=== PATIENT | male | born 1950 | race Caucasian/White ===

== ENCOUNTER 2018-02-22 15:35 | Outpatient (CLI) | payer BC ==
--- NOTE | 2018-02-22 17:51 | MRI ---
MRI CERVICAL SPINE NONCONTRAST: 02/22/18 HISTORY: Neck pain with bilateral arm radiculopathy. FINDINGS: Mild chronic wedging of several cervical vertebrae is noted without acute compression evident. There is desiccation of all of the intervertebral discs and prominent end plate changes within the bone mar row. Edema within the left posterior elements at the C7 and T1 level is favored to be related to dege nerative changes. There is reversal of the normal lordotic curvature. C2-3: Moderate stenosis left neural foramen. C3-4: Minimal degenerative spondylolisthesis. Posterior osteophyte/disc complex and circumferential d egenerative changes result in moderate stenosis of the central canal and severe stenosis of each neur al foramen. No abnormal signal within the spinal cord. C4-5: Disc space narrowing. Posterior osteophyte/disc complex and circumferential degenerative change s with moderate stenosis of the central canal and severe stenosis of each neural foramen. No abnormal signal within the spinal cord. C5-6: Disc space narrowing. Posterior osteophyte/disc complex and circumferential degenerative change s with severe stenosis of the central canal and compression of the spinal cord, greater on the right side. No abnormal signal within the spinal cord. There is severe stenosis of each neural foramen. C6-7: Disc space narrowing. Posterior osteophyte/disc complex and circumferential degenerative change s with moderate stenosis of the central canal and right neural foramen. Severe left foraminal stenosi s. C7-T1: Disc space narrowing. Central canal and neural foramina are patent. IMPRESSION: Severe multilevel degenerative changes throughout the cervical spine as detailed above, with central canal and foraminal stenoses, greatest at the C5-6 level. No evidence of myelomalacia. POS: [facility]
== END 2018-02-22 15:36 | disposition home or self-care (01) ==
LOC: SCSMRI 15:35
PROVIDERS: ATTEND Neurological Surgery
DX: M47.22 Other spondylosis with radiculopathy, cervical region (principal); M48.02 Spinal stenosis, cervical region; M99.81 Other biomechanical lesions of cervical region
CPT/HCPCS: 72141

== ENCOUNTER 2018-04-01 10:42 | Outpatient (CLI) | payer BC ==
[2018-04-01 11:07] LABS: Hemoglobin 16.6 g/dL (14.0-18.0); Mean Corpuscular HGB CONC 31.9 g/dL (32.0-36.0); Mean Corpuscular Hemoglobin 31.5 pg (27.0-31.0); Mean Corpuscular Volume 98.6 fl (80.0-94.0); Mean Platelet Volume 8.2 fL (7.4-10.4); Platelet Count 237 thou/uL (130-400); RBC Distribution Width 12.5 % (11.5-14.5); Red Blood Cell (RBC) Count 5.27 mill/uL (4.70-6.10); White Blood Cell (WBC) Count 12.6 thou/uL (4.8-10.8)
[2018-04-01 11:11] LABS: INR-International Normal Ratio 1.2; PTT 31.4 SEC (22.9-36.1); Prothrombin Time 15.7 SEC (12.0-14.7)
[2018-04-01 11:31] LABS: ALT (SGPT) 21 U/L (8-55); AST (SGOT) 20 U/L (5-34); Albumin 4.2 g/dL (3.4-4.8); Alkaline Phosphatase 81 U/L (40-150); Anion Gap 10 mmol/L (10-20); BUN (Urea Nitrogen) 14 mg/dL (8.4-25.7); Bilirubin, Total 0.6 mg/dL (0.2-1.2); Calc. Creatinine Clearance 0 mL/min (70-130); Calcium 9.3 mg/dL (7.8-10.44); Carbon Dioxide 25 mmol/L (23-31); Chloride 109 mmol/L (98-107); Estimated GFR-MDRD 64; Globulin 2.5 g/dL (2.4-3.5); Glucose 98 mg/dL (80-115); Potassium 4.4 mmol/L (3.5-5.1); Protein, Total 6.7 g/dL (5.8-8.1); Sodium 140 mmol/L (136-145)
--- NOTE | 2018-04-03 20:12 | EKG ---
Test Reason : Blood Pressure : / mmHG Vent. Rate : 085 BPM Atrial Rate : 085 BPM P-R Int : 186 ms QRS Dur : 156 ms QT Int : 408 ms P-R-T Axes : 060 -72 031 degrees QTc Int : 485 ms Normal sinus rhythm Right bundle branch block Left anterior fascicular block Bifascicular block Cannot rule out Inferior infarct (cited on or before 29-NOV-2013) Anterolateral infarct (cited on or before 24-JAN-2014) Abnormal ECG When compared with ECG of 26-JAN-2014 07:34, Questionable change in initial forces of Septal leads Nonspecific T wave abnormality has replaced inverted T waves in Inferior leads T wave inversion less evident in Anterolateral leads Confirmed by CHRISTIAN GALVEZ (2) on 04/03/2018 8:12:37 PM Referred By: COOKIE Confirmed By:CHRISTIAN GALVEZ
== END 2018-04-01 10:43 | disposition home or self-care (01) ==
LOC: LABBT 10:42
PROVIDERS: ATTEND Internal Medicine Cardiovascular Disease
DX: Z01.818 Encounter for other preprocedural examination (principal); R93.1 Abnormal findings on diagnostic imaging of heart and coronary circulation
CPT/HCPCS: 80053; 85027; 85610; 85730; 93005; 93010

== ENCOUNTER → 2018-04-02 | Day surgery (SDC) | payer BC ==
[2018-04-01 14:44] VITALS: BMI 37.2
[~2018-04-02] MED LIST: Diazepam 5 MG TAB ONE; Fentanyl 100 MCG/2 ML VIAL ONE; Heparin 10,000 UNITS/1 ML VIAL ONE; Lidocaine 1% (PF) 30 ML VIAL ONE; Midazolam HCl 2 mg/2 ml Vial ONE; Nitroglycerin 100MG/250ML BOT 250 ML ONE; Verapamil 5 MG/2 ML VIAL ONE
--- NOTE | 2018-04-02 12:12 | RAD ---
PORTABLE CHEST 1 VIEW: Date: 04/02/18 Time: 1122 hours HISTORY: Preoperative evaluation. FINDINGS: Comparison made with exam of 01/24/14. The heart size is normal. No focal areas of consolidation, pneumothorax, or pleural effusions are see n. IMPRESSION: No radiographic evidence of acute cardiopulmonary process. POS: [facility]
--- NOTE | 2018-04-02 13:01 | CON ---
DATE OF CONSULTATION: 04/02/2018 REASON FOR CONSULTATION: Evaluate the patient for coronary artery bypass grafting. HISTORY OF PRESENT ILLNESS: Mr. Ott is a very pleasant 67-year-old gentleman who is undergoin g preoperative evaluation for a cervical neck surgery by Dr. Taveras. Stress test in Dr. Elizondo's office was positive. He has a history of coronary artery disease, status post stenting of his LAD w ith acute restenosis followed by restenting with a drug-eluting stent in his LAD. Due to his coronar y history and positive stress test, he was brought back today for cardiac catheterization. This has revealed a stenosis in his LAD proximal to the stent. This involves the diagonal branch. He has als o a second diagonal branch which has some stenosis which is a small artery. Ejection fraction is 50- 55% on echocardiogram. I have been asked to see him to discuss coronary bypass grafting. PAST MEDICAL HISTORY: 1. Coronary artery disease, status post left anterior descending stenting. 2. Hypercholesterolemia. 3. Non-Hodgkin's lymphoma. 4. Venous reflux on the left status post laser ablation of his left greater saphenous vein. PAST SURGICAL HISTORY: As above. CURRENT MEDICATIONS: 1. Saw [place] 160 mg b.i.d. 2. Aspirin 325 mg every day. 3. [place] Thyroid 60 mg daily. 4. Vitamin B12 every day. 5. Metformin 1000 mg every day. 6. Testosterone gel every day. 7. Levothyroxine 25 mcg daily. 8. Trulicity. 9. Flomax 0.4 mg every day. 10. Crestor 20 mg at bedtime. ALLERGIES: None. SOCIAL HISTORY: He quit smoking a number of years ago. He is and works in the construction industry. PHYSICAL EXAMINATION: GENERAL: This is an obese gentleman resting comfortably after his cath. VITAL SIGNS: Height 6 foot 2 inches, weight 290 pounds, BSA is 2.62, heart rate is 70 and regular, b lood pressure is 130/72. HEENT: Sclerae nonicteric. Pupils are equal and round bilaterally. NECK: Supple, without carotid bruit. CHEST: Clear bilaterally. HEART: Rhythm is regular. ABDOMEN: Obese, soft and nontender. EXTREMITIES: No edema. VASCULAR: He has palpable carotid, radial, and femoral pulses bilaterally. VENOUS: There are no venous varicosities or venous stasis changes. ASSESSMENT AND PLAN: This is a pleasant 67-year-old gentleman with severe left anterior descending s tenosis proximal to his stent involving a large diagonal branch. These 2 arteries need bypass. Ther e is a second diagonal branch which may be bypassable. I have discussed bypass surgery with him and his in detail. Risks, benefits, and options have been outlined and they are agreeable to kenn hazel. He is administering a test on 04/15/2018 and would like to come in on 04/16/2018 for surgery. We will have him admitted as an outpatient.
== END ==
LOC: CCL 05:57
PROVIDERS: ATTEND Internal Medicine Cardiovascular Disease
DX: I25.118 Atherosclerotic heart disease of native coronary artery with other forms of angina pectoris (principal); E78.00 Pure hypercholesterolemia, unspecified; I25.2 Old myocardial infarction; E66.9 Obesity, unspecified; Z87.891 Personal history of nicotine dependence; Z95.5 Presence of coronary angioplasty implant and graft; Z79.84 Long term (current) use of oral hypoglycemic drugs; Z79.82 Long term (current) use of aspirin; Z79.899 Other long term (current) drug therapy; Z68.37 Body mass index [BMI] 37.0-37.9, adult
CPT/HCPCS: 71045; 93454; C1769; J1644; J2001; J2250; J3010

== ENCOUNTER 2018-04-16 05:41 | Inpatient (IN) | payer BC, MEDICARE ==
[2018-04-12 08:27] VITALS: BMI 36.6
[2018-04-16] MEDS ORDERED: CEFAZOLIN/Water 2 GM/20 ML SYRINGE ONE (06:15)
[2018-04-16] MEDS ORDERED: Albumin 5% 500 ML ONE (06:34)
[2018-04-16] MEDS ORDERED: Vecuronium 10 MG VIAL ONE ×2 (06:35→13:49)
[2018-04-16] MEDS ORDERED: Fentanyl 100 MCG/2 ML VIAL ONE (06:35)
[2018-04-16] MEDS ORDERED: Midazolam HCl 5 mg/5 ml Vial ONE (06:35)
[2018-04-16] MEDS ORDERED: Dexmedetomidine 200 MCG/2 ML VIAL ONE (06:35)
[2018-04-16] MEDS ORDERED: Heparin 10,000 UNITS/1 ML VIAL 30,000 UNITS, Admixture Fee 1 EACH in Sodium Chloride 0.... IVPB SCH (06:45)
[2018-04-16] MEDS ORDERED: Bivalirudin 250 MG VIAL ONE (08:58)
[2018-04-16] MEDS ORDERED: Insulin Regular 300 UNITS/3 ML VIAL ONE (09:50)
[2018-04-16] MEDS ORDERED: Dextrose 50% Abboject 50 ML SYRINGE ONE (09:50)
[2018-04-16] MEDS ORDERED: Protamine Sulfate 250 MG/25 ML VIAL ONE ×2 (10:00→13:49)
[2018-04-16] MEDS ORDERED: Bisacodyl 5 MG TAB PO PRN (11:04)
[2018-04-16] MEDS ORDERED: DOPamine 400 MG/D5W 250 ML 250 ML IVPB PRN (11:04)
[2018-04-16] MEDS ORDERED: Morphine 4 MG/ML VIAL SLOW IVP PRN (11:04)
[2018-04-16] MEDS ORDERED: HYDROcodone/Acetaminophen 5/325 mg Tablet PO PRN (11:04)
[2018-04-16] MEDS ORDERED: Promethazine HCl 25 MG/ML VIAL IM PRN (11:04)
[2018-04-16] MEDS ORDERED: Guaifenesin DM 100-10/5 ML UDCUP PO PRN (11:04)
[2018-04-16] MEDS ORDERED: hydrALAZINE 20 MG/ML VIAL SLOW IVP PRN (11:04)
[2018-04-16] MEDS ORDERED: Potassium Chloride 20 MEQ/100 ML PREMIX BAG IVPB PRN (11:04)
[2018-04-16] MEDS ORDERED: Mag-Al 1200 mg/1200 mg/30 ML UDCUP PO PRN (11:04)
[2018-04-16] MEDS ORDERED: Norepinephrine 8 MG/0.9% NS 250 ML IVPB PRN (11:04)
[2018-04-16] MEDS ORDERED: Ondansetron PF 4 MG/2 ML Vial IVP PRN (11:04)
[2018-04-16] MEDS ORDERED: Fentanyl 100 MCG/2 ML VIAL SLOW IVP PRN (11:04)
[2018-04-16] MEDS ORDERED: Nitroglycerin 50 MG/250 ML BOT 250 ML IVPB PRN (11:04)
[2018-04-16] MEDS ORDERED: Bisacodyl 10 MG SUPP PR PRN (11:04)
[2018-04-16] MEDS ORDERED: Hetastarch 6% 500 ML 500 ML IVPB PRN (11:04)
[2018-04-16] MEDS ORDERED: Post-Op Insulin Drip Protocol IVPB ONE (11:04)
[2018-04-16] MEDS ORDERED: D5 1/2 NS w/20 mEq KCL 1,000 ML IV SCH (11:04)
[2018-04-16] MEDS ORDERED: Magnesium 2 GM/NS 0.9% 100 ML 2 GM in Premix Bag 1 BAG IVPB SCH (11:15)
[2018-04-16] MEDS ORDERED: Dextrose 5% in Water 1,000 ML IV PRN (11:17)
[2018-04-16] MEDS ORDERED: Dextrose 50% Abboject 50 ML SYRINGE SLOW IVP PRN (11:17)
[2018-04-16] MEDS ORDERED: Insulin Regular 300 UNITS/3 ML VIAL SC PRN (11:17)
--- NOTE | 2018-04-16 11:35 | OP ---
DATE OF PROCEDURE: 04/16/2018 PREOPERATIVE DIAGNOSES: Coronary artery disease/hypertension/hyperlipidemia/obesity. POSTOPERATIVE DIAGNOSES: Coronary artery disease/hypertension/ hyperlipidemia/obesity. PROCEDURE: Coronary artery bypass grafting x3: 1. Left internal mammary artery 2.5 mm LAD - good conduit target. 2. Reverse saphenous vein to 2.0 mm D1 - good conduit and target. 3. Reverse saphenous vein to 2.0 mm D2, good conduit and target. SURGEON: Dr. Ramana Michel and Dr. Yovany Lowery ANESTHESIA: General endotracheal, Dr. Red Best. PUMP TIME: 67 minutes. CROSS-CLAMP TIME: 33 minutes. LOW CORE TEMP: 32-degree Celsius. ENVIRONMENTAL LABORATORY TECHNICIAN: Nelly Yepez. DRAINS: 24-Tajik chest tubes x2. DRIPS: Dopamine at 5 mcg per kilo per minute. TRANSFUSIONS: None. PROCEDURE IN DETAIL: After operative consent was obtained, the patient was brought to the operating room and placed in the supine position on operating table. Appropriate anesthetic monitor was placed and general endotracheal anesthesia induced. Chest, arms and legs were prepped and draped in usual sterile fashion. Greater saphenous vein was harvested from the right thigh utilizing endoscopic tech nique. Wounds were closed in layers. Median sternotomy was performed. The left internal mammary ar nikole was harvested as a pedicle graft. The patient was systemically heparinized. Distal pedicle was divided and infused with papaverine. Thymic fat pericardial divided with electrocautery. Pericardi al stay sutures were placed. Aortic and atrial cannulation was performed. After adequate hepariniza tion, retrograde prime was performed. The patient was then placed on cardiopulmonary bypass. Distal targets were marked. Aortic cross-clamp was applied and antegrade sanguinous cardioplegic arrest ob tained. One liter of antegrade cold cardioplegia was given. Topical cold solution was used. Revers e saphenous vein was anastomosed to the D1 end to side fashion with a 7-0 Prolene suture. Anastomosi s tested and was hemostatic. Reverse saphenous vein was anastomosed to D2 in end to side fashion wit h a 7-0 Prolene suture. Anastomosis was tested and was hemostatic. Mammary artery was brought throu gh a window in the pericardium and anastomosed the LAD in end-to-side fashion with running 7-0 Prolen e suture. On release of mammary clamp, there was good hooding anastomosis and good distal flow. Ped icle screw with interrupted 6-0 Prolene suture. Cross-clamp was removed and partial occluding clamp placed. Saphenous veins were anastomosed individual punch sites with running 6-0 Prolene suture. Pa rtial occluding clamp was removed and grafts deaired. Anastomoses were inspected for hemostasis, whi ch was good. The patient was warmed and weaned from cardiopulmonary bypass. After resumption of sin us rhythm, good hemodynamics, and temperature greater than 36.5, bypass was discontinued. Transfusio ns were given. Protamine was administered. Decannulation was performed and pursestring sutures secu red. Hemostasis was ensured in the mediastinum. A 24-Tajik chest tube x2 were placed. Again, hemo stasis was ensured. Sternum was treated with vancomycin paste. Sternum was closed with #7 wire. St ernum was treated with platelet-rich plasma and wires twisted. Wounds were irrigated and treated wit h platelet-poor plasma, and closed in multiple layers. Needle, sponge and instrument counts were all reported as correct at the end of the procedure.
[2018-04-16] MEDS: Fentanyl 100 MCG/2 ML VIAL SLOW IVP PRN ×2 (11:42→14:04)
[2018-04-16] MEDS: Ketorolac Tromethamine 30 MG/ML VIAL IVP SCH ×3 (11:42→23:05)
[2018-04-16 12:02] LABS: INR-International Normal Ratio 1.3; PTT 32.6 SEC (22.9-36.1); Prothrombin Time 16.2 SEC (12.0-14.7)
[2018-04-16 12:04] LABS: Anion Gap 9 mmol/L (10-20); BUN (Urea Nitrogen) 16 mg/dL (8.4-25.7); Calc. Creatinine Clearance 125 mL/min (70-130); Calcium 8.2 mg/dL (7.8-10.44); Carbon Dioxide 21 mmol/L (23-31); Chloride 111 mmol/L (98-107); Estimated GFR-MDRD 70; Glucose 167 mg/dL (80-115); Potassium 4.4 mmol/L (3.5-5.1); Sodium 137 mmol/L (136-145)
[2018-04-16 12:09] LABS: Hemoglobin 15.7 g/dL (14.0-18.0); Mean Corpuscular HGB CONC 31.3 g/dL (32.0-36.0); Mean Platelet Volume 8.2 fL (7.4-10.4); Platelet Count 122 thou/uL (130-400); RBC Distribution Width 12.3 % (11.5-14.5); Red Blood Cell (RBC) Count 5.07 mill/uL (4.70-6.10); White Blood Cell (WBC) Count 31.3 thou/uL (4.8-10.8)
[2018-04-16 12:23] LABS: Actual Bicarbonate (HCO3a) 22.9 mEq/L (22-26); Base Excess (BEa) -4.2 mEq/L (0 (+/-) 2.5); CO2 Tension 49.3 mmHg (35.0-45.0); O2 Tension (PaO2) 71.5 mmHg (80.0-100.0); pH, Arterial 7.29 (7.35-7.45)
[2018-04-16 12:24] LABS: ALV-art Gradient 223.375 (0-20); Calcium, Ionized 1.2 mmol/L (1.12-1.30); Carboxyhemoglobin (COHb) 1.6 gm% (0.0-3.0); Hematocrit-ABG 47.7 % (42.0-52.0); Hemoglobin (Hb) 15.8 g/dL (14.0-18.0); Puncture Site ALINE
[2018-04-16 12:27] LABS: Band 19 % (5-11); Eosinophils 1 % (0-10); Lymphocytes 8 % (21-51); MDiff Complete? YES; Monocytes 8 % (0-10); Neutrophil 60 % (42-75); RBC Morphology Normal; Reactive Lymphocytes 4 % (0-10)
[2018-04-16] MEDS ORDERED: Prevnar 13-Val Conj/PF 0.5 ML SYRINGE IM ONE (13:00)
[2018-04-16] MEDS: CEFAZOLIN/Water 2 GM/20 ML SYRINGE SLOW IVP SCH ×2 (13:27→20:17)
--- NOTE | 2018-04-16 13:36 | RAD ---
FRONTAL VIEW CHEST: Date: 04/16/18 COMPARISON: 04/02/18. INDICATION: Status post open heart surgery. FINDINGS: There is an endotracheal tube with tip at the level of the thoracic inlet. Right subclavian venous ca theter is present with tip overlying cavoatrial junction. There is evidence of sternotomy. Catheter t ubing is seen overlying the lower aspect of the mediastinum. There is an enteric catheter traversing the left mediastinal region, difficult to delineate at its distal aspect. If there is need to discern the distal portion, consider abdominal radiographic for more optimal visualization. There is patchy left basilar density, which obscures the left hemidiaphragm. The cardiac silhouette is enlarged and t here is prominence of the pulmonary vasculature. IMPRESSION: Patchy left basilar density which may be related to pleural fluid with adjacent atelectasis. Additional details are described above. POS: [facility]
[2018-04-16] MEDS ORDERED: Lidocaine 1% PF 5 ML VIAL ONE ×2 (13:49)
[2018-04-16] MEDS ORDERED: Heparin 30,000 units/30 ml VIAL ONE (13:49)
[2018-04-16] MEDS ORDERED: Lidocaine 2% PF 100 mg/5 ml Syringe ONE (13:49)
[2018-04-16] MEDS ORDERED: Papaverine 60 MG/2 ML VIAL ONE (13:49)
[2018-04-16] MEDS ORDERED: PHENYLEPHRINE-NS 100 MCG/ML 10 ML SYRINGE ONE (13:49)
[2018-04-16] MEDS ORDERED: ePHEDrine/0.9% NaCl/PF SYRINGE 50 mg/10 ml ONE (13:49)
[2018-04-16] MEDS ORDERED: Nitroglycerin 50 MG/250 ML BOT ONE (13:49)
[2018-04-16] MEDS ORDERED: Tranexamic Acid 1,000 MG/10 ML VIAL ONE (13:49)
[2018-04-16] MEDS ORDERED: Sodium Bicarb 50 MEQ/50 ML Abboject 8.4% SYRINGE ONE (13:49)
[2018-04-16] MEDS ORDERED: Calcium Chloride 1 GM/10 ML Abboject SYRINGE ONE (13:49)
[2018-04-16] MEDS ORDERED: Glycopyrrolate 0.2 MG/ML 5 ML SYRINGE ONE (13:49)
[2018-04-16] MEDS ORDERED: Cardioplegic Soln 1,000 ML BAG ONE (13:49)
[2018-04-16] MEDS ORDERED: Heparin 5,000 UNITS/ML VIAL ONE (13:49)
[2018-04-16] MEDS ORDERED: Thrombin 5000 UNITS/5 ML VIAL ONE (13:49)
[2018-04-16] MEDS: Meperidine HCl/PF 25 MG/ML VIAL SLOW IVP PRN ×4 (14:27→23:06)
[2018-04-16 17:22] LABS: Hemoglobin 15.5 g/dL (14.0-18.0)
[2018-04-16] MEDS: Acetaminophen 325 MG TAB PO PRN (20:05)
[2018-04-16] MEDS: Famotidine/PF 20 mg/2ml Vial SLOW IVP SCH (20:37)
--- NOTE | 2018-04-16 23:54 | EKG ---
Test Reason : POST CABG Blood Pressure : / mmHG Vent. Rate : 112 BPM Atrial Rate : 112 BPM P-R Int : 146 ms QRS Dur : 150 ms QT Int : 368 ms P-R-T Axes : 046 -77 047 degrees QTc Int : 502 ms Sinus tachycardia Left axis deviation Right bundle branch block Inferior infarct (cited on or before 29-NOV-2013) Anteroseptal infarct (cited on or before 24-JAN-2014) Abnormal ECG When compared with ECG of 01-APR-2018 10:52, Left anterior fascicular block is no longer Present Questionable change in initial forces of Septal leads Confirmed by Morenita LOVETT ([id number]) on 04/16/2018 11:54:08 PM Referred By: Enoch DEGROOT Confirmed By:Morenita LOVETT
[2018-04-17] MEDS: Acetaminophen 325 MG TAB PO PRN (02:05)
[2018-04-17] MEDS: Meperidine HCl/PF 25 MG/ML VIAL SLOW IVP PRN ×7 (03:31→21:36)
[2018-04-17 04:41] LABS: #Lymphocytes 1.9 thou/uL (1.20-3.40); %Basophils 0.3 % (0.0-1.0); %Eosinophils 0.2 % (0.0-10.0); %Lymphocytes 13.5 % (21.0-51.0); %Monocytes 14.3 % (0.0-10.0); %Neutrophils 71.8 % (42.0-75.0); Hemoglobin 13.6 g/dL (14.0-18.0); Mean Corpuscular HGB CONC 32.8 g/dL (32.0-36.0); Mean Corpuscular Hemoglobin 32.3 pg (27.0-31.0); Mean Corpuscular Volume 98.3 fl (80.0-94.0); Mean Platelet Volume 8.1 fL (7.4-10.4); Platelet Count 108 thou/uL (130-400); RBC Distribution Width 12.3 % (11.5-14.5)
[2018-04-17 04:45] LABS: Anion Gap 12 mmol/L (10-20); BUN (Urea Nitrogen) 22 mg/dL (8.4-25.7); Calc. Creatinine Clearance 108 mL/min (70-130); Calcium 7.9 mg/dL (7.8-10.44); Carbon Dioxide 22 mmol/L (23-31); Chloride 108 mmol/L (98-107); Estimated GFR-MDRD 59; Glucose 139 mg/dL (80-115); Potassium 4.5 mmol/L (3.5-5.1); Sodium 137 mmol/L (136-145)
[2018-04-17] MEDS: Ketorolac Tromethamine 30 MG/ML VIAL IVP SCH ×4 (05:26→23:46)
[2018-04-17] MEDS: CEFAZOLIN/Water 2 GM/20 ML SYRINGE SLOW IVP SCH (05:28)
[2018-04-17] MEDS: Magnesium 2 GM/NS 0.9% 100 ML 2 GM in Premix Bag 1 BAG IVPB SCH (08:25)
[2018-04-17] MEDS: Famotidine/PF 20 mg/2ml Vial SLOW IVP SCH ×2 (08:25→21:00)
[2018-04-17] MEDS: Aspirin 325 MG TAB PO SCH (08:25)
[2018-04-17] MEDS: Rosuvastatin 20 MG TAB PO SCH (08:25)
[2018-04-17 09:18] LABS: Actual Bicarbonate (HCO3a) 24.7 mEq/L (22-26); CO2 Tension 49.2 mmHg (35.0-45.0); O2 Tension (PaO2) 311.6 mmHg (80.0-100.0); pH, Arterial 7.32 (7.35-7.45)
[2018-04-17 09:19] LABS: Actual Bicarbonate (HCO3a) 23.4 mEq/L (22-26); Base Excess (BEa) -2.8 mEq/L (0 (+/-) 2.5); CO2 Tension 45.4 mmHg (35.0-45.0); O2 Tension (PaO2) 145.8 mmHg (80.0-100.0); pH, Arterial 7.33 (7.35-7.45)
[2018-04-17 09:19] LABS: Analyzer IN Cardio OR; Calcium, Ionized 1.2 mmol/L (1.12-1.30); Carboxyhemoglobin (COHb) 1.6 gm% (0.0-3.0); Hematocrit-ABG 49.3 % (42.0-52.0); Potassium - ABG Lab 4.6 mmol/L (3.70-5.30); Puncture Site ALINE
[2018-04-17 09:20] LABS: Actual Bicarbonate (HCO3a) 23.4 mEq/L (22-26); Base Excess (BEa) -2.5 mEq/L (0 (+/-) 2.5); CO2 Tension 44.3 mmHg (35.0-45.0); O2 Tension (PaO2) 348.3 mmHg (80.0-100.0); pH, Arterial 7.34 (7.35-7.45)
[2018-04-17 09:20] LABS: Analyzer IN Cardio OR; Calcium, Ionized 1.1 mmol/L (1.12-1.30); Carboxyhemoglobin (COHb) 1.5 gm% (0.0-3.0); Hemoglobin (Hb) 15.2 g/dL (14.0-18.0); Potassium - ABG Lab 5.3 mmol/L (3.70-5.30); Puncture Site ALINE
[2018-04-17 09:21] LABS: Analyzer IN Cardio OR; Calcium, Ionized 1.1 mmol/L (1.12-1.30); Carboxyhemoglobin (COHb) 1.4 gm% (0.0-3.0); Hematocrit-ABG 38.7 % (42.0-52.0); Hemoglobin (Hb) 13.3 g/dL (14.0-18.0); Potassium - ABG Lab 6.8 mmol/L (3.70-5.30); Puncture Site ALINE
[2018-04-17 09:21] LABS: Actual Bicarbonate (HCO3v) 25 mEq/L (22-26); Analyzer IN Cardio OR; Base Excess -1.7 mEq/L (0 (+/- 2.5)); pH (venous) 7.31 (7.35-7.45)
[2018-04-17 09:22] LABS: Calcium, Ionized 1.05 mmol/L (1.16-1.32); Chloride (ABG LAB) 101 mmol/L (98-106); Hematocrit-VBG 39.3 % (37-51); Hemoglobin (Hb) 13.2 g/dL (12.6-17.4); Potassium - ABG Lab 6.8 mmol/L (3.70-5.30); Sodium 135.8 mmol/L (133-146)
[2018-04-17 09:22] LABS: Base Excess (BEa) -2.6 mEq/L (0 (+/-) 2.5); Carboxyhemoglobin (COHb) 1.5 gm% (0.0-3.0); Hematocrit-ABG 41.1 % (42.0-52.0); Hemoglobin (Hb) 13.6 g/dL (14.0-18.0); O2 Tension (PaO2) 352.8 mmHg (80.0-100.0); pH, Arterial 7.35 (7.35-7.45)
[2018-04-17 09:23] LABS: Actual Bicarbonate (HCO3a) 23.5 mEq/L (22-26); Base Excess (BEa) -1.8 mEq/L (0 (+/-) 2.5); CO2 Tension 42.1 mmHg (35.0-45.0); Hematocrit-ABG 40.7 % (42.0-52.0); Hemoglobin (Hb) 13.6 g/dL (14.0-18.0); O2 Tension (PaO2) 339.2 mmHg (80.0-100.0); pH, Arterial 7.37 (7.35-7.45)
[2018-04-17 09:23] LABS: Analyzer IN Cardio OR; Calcium, Ionized 1.1 mmol/L (1.12-1.30); Potassium - ABG Lab 7.1 mmol/L (3.70-5.30); Puncture Site ALINE
[2018-04-17 09:24] LABS: Actual Bicarbonate (HCO3a) 23.1 mEq/L (22-26); Base Excess (BEa) -2.7 mEq/L (0 (+/-) 2.5); CO2 Tension 43.4 mmHg (35.0-45.0); Carboxyhemoglobin (COHb) 1.6 gm% (0.0-3.0); Hematocrit-ABG 40.6 % (42.0-52.0); Hemoglobin (Hb) 13.7 g/dL (14.0-18.0); O2 Tension (PaO2) 85.9 mmHg (80.0-100.0); pH, Arterial 7.34 (7.35-7.45)
[2018-04-17 09:24] LABS: Analyzer IN Cardio OR; Calcium, Ionized 1.5 mmol/L (1.12-1.30); Carboxyhemoglobin (COHb) 1.5 gm% (0.0-3.0); Potassium - ABG Lab 6.1 mmol/L (3.70-5.30); Puncture Site ALINE
[2018-04-17 09:25] LABS: Analyzer IN Cardio OR; Calcium, Ionized 1.3 mmol/L (1.12-1.30); Potassium - ABG Lab 5.2 mmol/L (3.70-5.30); Puncture Site ALINE
--- NOTE | 2018-04-17 10:18 | RAD ---
CHEST ONE VIEW: HISTORY: Post surgical patient. Post open heart surgery. COMPARISON: Radiograph from the prior day. FINDINGS: The patient is extubated. The enteric tube has been removed. The heart size is enlarged. The centr al venous catheter is similar. Mediastinal drains are similar. Mild atelectasis. IMPRESSION: Interval extubation and removal of enteric tube without complication. POS: [facility]
[2018-04-17 11:17] LABS: Actual Bicarbonate (HCO3a) 17.5 mEq/L (22-26); Analyzer IN Cardio OR; Base Excess (BEa) -7.2 mEq/L (0 (+/-) 2.5); CO2 Tension 33.5 mmHg (35.0-45.0); Carboxyhemoglobin (COHb) 1.6 gm% (0.0-3.0); Hematocrit-ABG 41.8 % (42.0-52.0); Hemoglobin (Hb) 14.4 g/dL (14.0-18.0); O2 Tension (PaO2) 212.1 mmHg (80.0-100.0); Potassium - ABG Lab 3.8 mmol/L (3.70-5.30); pH, Arterial 7.34 (7.35-7.45)
[2018-04-17] MEDS: oxyCODONE ER 20 MG TAB PO PRN (21:00)
[2018-04-17] MEDS ORDERED: oxyCODONE ER 10 MG TAB PO PRN (21:00)
[2018-04-17] MEDS: HYDROcodone/Acetaminophen 5/325 mg Tablet PO PRN (23:47)
[2018-04-18] MEDS: Ketorolac Tromethamine 30 MG/ML VIAL IVP SCH ×4 (05:09→23:34)
[2018-04-18] MEDS: HYDROcodone/Acetaminophen 5/325 mg Tablet PO PRN ×4 (05:10→23:34)
[2018-04-18 05:48] LABS: Anion Gap 8 mmol/L (10-20); BUN (Urea Nitrogen) 27 mg/dL (8.4-25.7); Calc. Creatinine Clearance 91 mL/min (70-130); Calcium 8.5 mg/dL (7.8-10.44); Carbon Dioxide 26 mmol/L (23-31); Chloride 105 mmol/L (98-107); Estimated GFR-MDRD 48; Glucose 146 mg/dL (80-115); Potassium 4.5 mmol/L (3.5-5.1); Sodium 134 mmol/L (136-145)
[2018-04-18] MEDS: Famotidine 20 MG TAB PO SCH ×2 (08:43→21:31)
[2018-04-18] MEDS: Rosuvastatin 20 MG TAB PO SCH (08:43)
[2018-04-18] MEDS: Aspirin 325 MG TAB PO SCH (08:43)
[2018-04-18] MEDS: Magnesium 2 GM/NS 0.9% 100 ML 2 GM in Premix Bag 1 BAG IVPB SCH (08:44)
[2018-04-18] MEDS: oxyCODONE ER 20 MG TAB PO PRN ×2 (09:04→21:31)
[2018-04-18] MEDS ORDERED: Zolpidem Tartrate 5 MG TAB PO PRN (23:25)
[2018-04-18] MEDS ORDERED: diphenhydrAMINE 25 MG CAP PO PRN (23:25)
[2018-04-18] MEDS ORDERED: Artificial Tears 18 DROP/0.9 ML EA EYE PRN (23:25)
[2018-04-18] MEDS ORDERED: Nitroglycerin 0.4 MG TAB (25 Tab Bottle) SL PRN (23:25)
[2018-04-18] MEDS ORDERED: Mineral Oil ENEMA PR PRN (23:25)
[2018-04-18] MEDS ORDERED: Mag-Al 1200 mg/1200 mg/30 ML UDCUP PO PRN (23:25)
[2018-04-18] MEDS ORDERED: Guaifenesin DM 100-10/5 ML UDCUP PO PRN (23:25)
[2018-04-18] MEDS ORDERED: Bisacodyl 10 MG SUPP PR PRN (23:25)
[2018-04-18] MEDS ORDERED: Furosemide 40 MG/4 ML VIAL SLOW IVP SCH (23:25)
[2018-04-19 04:47] LABS: Anion Gap 9 mmol/L (10-20); BUN (Urea Nitrogen) 26 mg/dL (8.4-25.7); Calc. Creatinine Clearance 94 mL/min (70-130); Carbon Dioxide 27 mmol/L (23-31); Chloride 102 mmol/L (98-107); Estimated GFR-MDRD 49; Glucose 138 mg/dL (80-115); Potassium 4.3 mmol/L (3.5-5.1); Sodium 134 mmol/L (136-145)
[2018-04-19] MEDS: Ketorolac Tromethamine 30 MG/ML VIAL IVP SCH ×2 (05:19→12:10)
[2018-04-19] MEDS: HYDROcodone/Acetaminophen 5/325 mg Tablet PO PRN ×2 (05:20→22:17)
[2018-04-19] MEDS: Rosuvastatin 20 MG TAB PO SCH (09:20)
[2018-04-19] MEDS: Aspirin 325 mg Enteric Coated Tablet PO SCH (09:20)
[2018-04-19] MEDS: Famotidine 20 MG TAB PO SCH ×2 (09:20→20:19)
[2018-04-19] MEDS: Bisacodyl 5 MG TAB PO PRN ×2 (09:51→20:18)
[2018-04-19] MEDS: Docusate 100 MG CAP PO PRN ×2 (09:51→20:21)
[2018-04-19] MEDS ORDERED: Furosemide 20 MG/2 ML VIAL SLOW IVP SCH (19:45)
[2018-04-19] MEDS: oxyCODONE ER 20 MG TAB PO PRN (20:19)
[2018-04-20] MEDS: HYDROcodone/Acetaminophen 5/325 mg Tablet PO PRN ×4 (02:13→20:53)
[2018-04-20 05:49] LABS: Anion Gap 11 mmol/L (10-20); BUN (Urea Nitrogen) 22 mg/dL (8.4-25.7); Calc. Creatinine Clearance 111 mL/min (70-130); Carbon Dioxide 24 mmol/L (23-31); Chloride 99 mmol/L (98-107); Estimated GFR-MDRD 55; Glucose 112 mg/dL (80-115); Potassium 4.2 mmol/L (3.5-5.1); Sodium 130 mmol/L (136-145)
[2018-04-20] MEDS ORDERED: Magnesium Citrate 300 ML BOT PO SCH (08:00)
[2018-04-20] MEDS ORDERED: Metolazone 5 MG TAB PO SCH (08:00)
[2018-04-20] MEDS: Rosuvastatin 20 MG TAB PO SCH (08:54)
[2018-04-20] MEDS: Aspirin 325 mg Enteric Coated Tablet PO SCH (08:54)
[2018-04-20] MEDS: Famotidine 20 MG TAB PO SCH ×2 (08:54→20:10)
[2018-04-20] MEDS: Furosemide 40 MG TAB PO SCH ×2 (08:54→14:55)
[2018-04-20] MEDS: oxyCODONE ER 20 MG TAB PO PRN (08:57)
[2018-04-20] MEDS ORDERED: Milk Of Magnesia 30 ML UDCUP PO PRN (11:55)
[2018-04-20] MEDS: Docusate 100 MG CAP PO PRN (15:21)
--- NOTE | 2018-04-20 17:08 | CON ---
DATE OF CONSULTATION: 04/20/2018 REASON FOR CONSULTATION: SVT and nonsustained VT. HISTORY OF PRESENT ILLNESS: He is a patient of Dr. Blanchard. He recently had a heart catheterization that showed stenosis in his LAD proximal to the stent involving a diagonal branch, so he was recommended to undergo coronary artery bypass grafting. He had this done on the . He has been doing well postoperatively dealing with a lot of pain and constipation. Yesterday evening , he went into an episode of nonsustained SVT and also had an episode of nonsustained VT. It looks mostly monomorphic with an extremely fast VT at about 280 beats per minute. This was self-limited. He otherwise has not had any syncope or presyncope. No other issues. PAST MEDICAL HISTORY: 1. Coronary artery disease. 2. Hyperlipidemia. 3. Non-Hodgkin's lymphoma. 4. Venous reflux status post laser ablation of the left greater saphenous vein. PAST SURGICAL HISTORY: 1. Cervical neck surgery. 2. Coronary artery bypass grafting as above. OUTPATIENT MEDICATIONS: Included; 1. Supplemental. 2. Aspirin 325 a day. 3. [place] Thyroid 60 mg a day. 4. Vitamin B12. 5. Metformin 1000 mg a day. 6. Testosterone gel. 7. Levothyroxine 25 mcg a day. 8. Trulicity. 9. Flomax 0.4 mg daily. 10. Crestor 10 mg at bedtime. ALLERGIES: No known drug allergies. SOCIAL HISTORY: Former smoker, no alcohol, drugs. REVIEW OF SYSTEMS: A 12 point review of systems was done, all negative as stated in the history of present illness. PHYSICAL EXAMINATION: VITAL SIGNS: Temperature 98.3, pulse 90, respiratory rate 18, satting 95% on room air, blood pressure 120/72. GENERAL: Awake, alert, oriented x3, in no distress. HEENT: Normocephalic, atraumatic. NECK: Supple. LUNGS: Clear. CARDIOVASCULAR: S1, S2, and S3, S4, no murmurs. ABDOMEN: Soft. Positive bowel sounds. EXTREMITIES: No edema. SKIN: Warm and dry. LABORATORY DATA: Reviewed. White count of 31,000, after surgery down to 14; hemoglobin of 13.6; platelet count of 108. Coags, ABG were reviewed. Chemistries were reviewed. Normal BUN at 22; creatinine was 1.3, actually coming down from 1.4. GFR 55, glucose of 112, calcium of 8, potassium was 4.2. Telemetry was reviewed. ASSESSMENT: 1. Multivessel coronary artery disease, status post coronary bypass grafting with a [place] to the LAD, a vein graft to D1 and a vein graft to D2. 2. Nonsustained supraventricular tachycardia. 3. Nonsustained ventricular tachycardia. PLAN: 1. Continue postoperative care. 2. Continue pain management. 3. We will start amiodarone 400 mg twice a day. This is nonsustained, I do not think this is related to any further ischemia. 4. We will get a repeat echocardiogram to make sure that his LV function has not changed significantly since it was last seen recently. Thank you for letting us participate in the care of your patient. We will follow. ULIS[facility]
[2018-04-20] MEDS: Amiodarone 200 MG TAB PO SCH (20:10)
[2018-04-20] MEDS: Metoprolol Tartrate 25 MG TAB PO SCH (20:10)
[2018-04-21] MEDS: oxyCODONE ER 20 MG TAB PO PRN (00:24)
[2018-04-21] MEDS: HYDROcodone/Acetaminophen 5/325 mg Tablet PO PRN ×2 (02:23→06:17)
[2018-04-21 05:39] LABS: Anion Gap 11 mmol/L (10-20); BUN (Urea Nitrogen) 19 mg/dL (8.4-25.7); Calc. Creatinine Clearance 114 mL/min (70-130); Calcium 8.6 mg/dL (7.8-10.44); Carbon Dioxide 32 mmol/L (23-31); Chloride 92 mmol/L (98-107); Estimated GFR-MDRD 57; Glucose 134 mg/dL (80-115); Potassium 3.6 mmol/L (3.5-5.1); Sodium 131 mmol/L (136-145)
[2018-04-21] MEDS: Amiodarone 200 MG TAB PO SCH (10:03)
[2018-04-21] MEDS: Aspirin 325 mg Enteric Coated Tablet PO SCH (10:04)
[2018-04-21] MEDS: Furosemide 40 MG TAB PO SCH (10:04)
[2018-04-21] MEDS: Famotidine 20 MG TAB PO SCH (10:04)
[2018-04-21] MEDS: Metoprolol Tartrate 25 MG TAB PO SCH (10:04)
[2018-04-21] MEDS: Rosuvastatin 20 MG TAB PO SCH (10:04)
[2018-04-21 12:30] VITALS: BP 116/75; TEMP 98.7
--- NOTE | 2018-04-21 12:41 | DIS ---
DATE OF ADMISSION: 04/16/2018 DATE OF DISCHARGE: 04/21/2018 PRINCIPAL DIAGNOSIS: Coronary artery disease. PROCEDURES PERFORMED: Coronary artery bypass grafting x3 with left internal mammary artery to the LA D and reverse greater saphenous vein grafts from the aorta to the first and second diagonals, 018. HISTORY OF PRESENT ILLNESS AND HOSPITAL COURSE: The patient is a 67-year-old man who has known histo ry of coronary artery disease. He had a positive stress test as part of evaluation preoperatively fo r cervical surgery. Cardiac catheterization demonstrated stenosis of the LAD proximal to his stent i nvolving diagonal branch. He had a preserved left ventricular function with an EF of around 50%-55% by echocardiography. He underwent surgical revascularization. He was extubated the day of surgery. Beta blockers and LIOR inhibitors were held initially in keeping with his preop medical regimen that did not include either. He was diuresed. Pain control was a difficult issue and that appear to cont ribute to the development of some pretty significant constipation, which after several days was relie jossie with laxatives. He had some episodes of nonsustained ventricular tachycardia and supraventricula r tachycardia. Lopressor was ordered as his heart rates have been around 90 and his blood pressure a round 120/70 and after an evaluation by Electrophysiology, that was not given and amiodarone was star dorys instead with no recurrence of his arrhythmias. He is now being discharged on amiodarone 400 mg b .i.d. and adult aspirin a day, 2 weeks worth of Lasix, Crestor, and Vicodin as needed for pain. Our office will contact him about postoperative followup and follow up with Cardiology will be per them.
--- NOTE | 2018-04-21 16:14 | PDOC.CTH ---
Cardiology Progress Note - Subjective Doing better. Pain better controlled. Having BM's. - Objective Vital Signs Temp Pulse Resp BP Pulse Ox 04/21/18 12:00 98.7 F 76 18 116/75 94 L 04/21/18 08:02 98 F 90 18 94 L 04/21/18 07:57 98 F 90 18 119/59 L 94 L Admit Weight 284 lb 13.396 oz Weight 303 lb 5 oz 04/20/18 04/21/18 04/22/18 06:59 06:59 06:59 Intake Total 2390 2760 Output Total 2680 2700 Balance -290 60 - Physical Examination General/Neuro: alert & oriented x3, NAD Neck: no JVD present Lungs: unlabored respirations Heart: RRR Abdomen: NT/ND Extremities: + edema B (1+) - Telemetry Telemetry Rhythm: NSR - Labs Result Diagrams: 04/17/18 04:25 04/21/18 04:44 - Assessment/Plan 1. S/P CABG 2. NON sustained SVT 3. Non sustained VT PLAN: - No more arrhythmias since starting amio. - Continue amiodarone load at 400 mg BID for 10 days then 200 mg daily. - Likely amio only for one month total. - Continue BB for now. - May discharge home from cardiac perspective.
== END 2018-04-21 12:53 | disposition home or self-care (01) | DRG 236 ==
LOC: SURG A 05:41 → CCU 11:32 → 2NO 04-19 11:17
PROVIDERS: ADMIT Thoracic Surgery (Cardiothoracic Vascular Surgery); ATTEND Thoracic Surgery (Cardiothoracic Vascular Surgery)
PROC: 02100Z9 Bypass Coronary Artery, One Artery from Left Internal Mammary, Open Approach (ICD-10-PCS; principal; 2018-04-16)
PROC: 021109W Bypass Coronary Artery, Two Arteries from Aorta with Autologous Venous Tissue, Open Approach (ICD-10-PCS; 2018-04-16)
PROC: 06BP4ZZ Excision of Right Saphenous Vein, Percutaneous Endoscopic Approach (ICD-10-PCS; 2018-04-16)
PROC: 5A1221Z Performance of Cardiac Output, Continuous (ICD-10-PCS; 2018-04-16)
DX: I25.10 Atherosclerotic heart disease of native coronary artery without angina pectoris (principal); I47.2 Ventricular tachycardia; I47.1 Supraventricular tachycardia; I10 Essential (primary) hypertension; E78.5 Hyperlipidemia, unspecified; E66.9 Obesity, unspecified; Z68.38 Body mass index [BMI] 38.0-38.9, adult; K59.00 Constipation, unspecified; G89.18 Other acute postprocedural pain; Z85.72 Personal history of non-Hodgkin lymphomas; Z87.891 Personal history of nicotine dependence; Z79.82 Long term (current) use of aspirin; Z79.899 Other long term (current) drug therapy
CPT/HCPCS: 36415; 36416; 71045; 80048; 82805; 85025; 85610; 85730; 86850; 86900; 86901; 93005; 93010; 93306; 93798; 94002; J0583; J1642; J1644; J1815; J1885; J1940; J2001; J2175; J2250; J2440; J2720; J3010; J3370; J3475; J7050; P9045; S0028

== ENCOUNTER 2018-05-07 11:46 | Outpatient (CLI) | payer BC ==
--- NOTE | 2018-05-07 13:45 | RAD ---
PA AND LATERAL CHEST RADIOGRAPH: Date: 05-07-18 History: Shortness of breath. Comparison: 04-17-18 FINDINGS: The right subclavian central venous catheter and left sided thoracostomy tube have been removed. Post -surgical changes related to CABG are again noted. There is a small left pleural effusion which has d eveloped in the interim with atelectasis present at the left lung base with a linear area of atelecta sis versus scarring in the region of the lingula. There is also mild atelectasis at the right lung ba se with questionable tiny right pleural effusion. Cardiac silhouette is mildly enlarged. The pulmonar y vasculature is within normal limits. No other interval change. IMPRESSION: 1. Small left pleural effusion and atelectasis. 2. Atelectasis at the right lung base with questionable tiny right pleural effusion. POS: [facility]
== END 2018-05-07 11:47 | disposition home or self-care (01) ==
LOC: RAD 11:46
PROVIDERS: ATTEND Physician Assistant
DX: R06.02 Shortness of breath (principal); J90 Pleural effusion, not elsewhere classified; J98.11 Atelectasis
CPT/HCPCS: 71046

== ENCOUNTER 2019-05-01 01:47 | Outpatient (CLI) | payer BC, MEDICARE ==
[2019-05-01 16:09] LABS: Hemoglobin 16.4 g/dL (14.0-18.0); Mean Platelet Volume 8.6 fL (7.4-10.4); Platelet Count 214 thou/uL (130-400); RBC Distribution Width 12.6 % (11.5-14.5); Red Blood Cell (RBC) Count 5.13 mill/uL (4.70-6.10); White Blood Cell (WBC) Count 10.8 thou/uL (4.8-10.8)
[2019-05-01 16:16] LABS: INR-International Normal Ratio 1.2; PTT 31.4 SEC (22.9-36.1); Prothrombin Time 15.2 SEC (12.0-14.7)
[2019-05-01 16:37] LABS: Anion Gap 15 mmol/L (10-20); BUN (Urea Nitrogen) 14 mg/dL (8.4-25.7); Calc. Creatinine Clearance 0 mL/min (70-130); Calcium 9.4 mg/dL (7.8-10.44); Carbon Dioxide 23 mmol/L (23-31); Chloride 105 mmol/L (98-107); Estimated GFR-MDRD 63; Glucose 102 mg/dL (80-115); Potassium 4.5 mmol/L (3.5-5.1); Sodium 138 mmol/L (136-145)
== END 2019-05-01 01:48 | disposition home or self-care (01) ==
LOC: LABBT 01:47
PROVIDERS: ATTEND Orthopaedic Surgery
DX: Z01.818 Encounter for other preprocedural examination (principal); M17.11 Unilateral primary osteoarthritis, right knee
CPT/HCPCS: 80048; 83036; 85027; 85610; 85730; 86850; 86900; 86901; 87081

== ENCOUNTER 2019-05-01 13:15 | Inpatient (IN) | payer BC, MEDICARE ==
[2019-05-01 13:46] VITALS: BMI 36.6
[2019-05-05] MEDS ORDERED: Ropivacaine 0.5% HCl/PF (150 MG/30 ML VIAL) ONE (11:25)
[2019-05-05] MEDS ORDERED: Ropivacaine 0.2% HCl/PF (40 MG/20 ML VIAL) ONE (11:25)
[2019-05-05] MEDS ORDERED: Bupivacaine HCl 0.5%/Epinephrine 1:200,000/PF 30 ml Vial ONE (11:25)
[2019-05-05] MEDS ORDERED: Sodium Chloride 0.9% 100 ML ONE (11:50)
[2019-05-05] MEDS ORDERED: Tranexamic Acid 1,000 MG/10 ML VIAL ONE (11:50)
[2019-05-05] MEDS ORDERED: PROPOFOL 200 MG/20 ML VIAL ONE (12:12)
[2019-05-05] MEDS ORDERED: Phenylephrine HCL 10 MG/ML VIAL ONE (12:12)
[2019-05-05] MEDS ORDERED: ePHEDrine 50 MG/ML VIAL ONE (12:12)
[2019-05-05] MEDS ORDERED: Ondansetron PF 4 MG/2 ML Vial ONE (12:12)
[2019-05-05] MEDS ORDERED: Lidocaine 1% PF 5 ML VIAL ONE (12:12)
[2019-05-05] MEDS ORDERED: Ketorolac Tromethamine 30 MG/ML VIAL ONE (12:12)
[2019-05-05] MEDS ORDERED: Dexamethasone 20 MG/5 ML VIAL ONE (12:12)
[2019-05-05] MEDS ORDERED: Fentanyl 100 MCG/2 ML VIAL ONE ×4 (12:17→18:36)
[2019-05-05] MEDS ORDERED: Midazolam HCl 2 mg/2 ml Vial ONE (12:17)
[2019-05-05] MEDS ORDERED: Neomycin-Polymyxin 1 ML AMP ONE (12:33)
[2019-05-05] MEDS ORDERED: Bupivacaine/Epinephrine 0.25% 30 ML VIAL ONE (12:33)
[2019-05-05] MEDS ORDERED: Ondansetron HCl/PF 4 MG/2 ML Vial IVP PRN (17:08)
[2019-05-05] MEDS ORDERED: Promethazine HCl 25 MG/ML VIAL IM PRN (17:08)
[2019-05-05] MEDS ORDERED: Promethazine HCl 25 MG/ML VIAL SLOW IVP PRN (17:08)
[2019-05-05] MEDS ORDERED: Acetaminophen 325 MG TAB PO PRN (17:13)
[2019-05-05] MEDS ORDERED: diphenhydrAMINE 25 MG CAP PO PRN (17:13)
[2019-05-05] MEDS ORDERED: HYDROcodone/Acetaminophen 10/325 mg Tablet PO PRN (17:13)
[2019-05-05] MEDS ORDERED: Ondansetron PF 4 MG/2 ML Vial IVP PRN (17:13)
[2019-05-05] MEDS ORDERED: traMADol HCl 50 MG TAB PO PRN (17:13)
[2019-05-05] MEDS ORDERED: DULAGLUTIDE SC SCH (17:30)
--- NOTE | 2019-05-05 18:21 | RAD ---
RIGHT KNEE TWO VIEWS: 05/05/19 HISTORY: Postop. Patient is status post total knee replacement which is in good position without evidence of fracture. IMPRESSION: Placement of a total knee prosthesis. POS: [facility]
--- NOTE | 2019-05-05 20:35 | PDOC.PN ---
- Subjective Encounter Start Date: 05/05/19 Encounter Start Time: 20:35 Subjective: feels well.s/p R knee Sx. no new complaints - Objective MAR Reviewed: Yes Vital Signs & Weight: Weight Weight 285 lb Phys Exam - Physical Examination Constitutional: NAD HEENT: PERRLA, moist MMs, sclera anicteric, oral pharynx no lesions, 2+ tonsils Neck: no nodes, no JVD, supple, full ROM Respiratory: no wheezing, no rales, no rhonchi, clear to auscultation bilateral Cardiovascular: RRR, no significant murmur, no rub Gastrointestinal: soft, non-tender, no distention, positive bowel sounds Musculoskeletal: no edema, pulses present Neurological: non-focal, normal sensation, moves all 4 limbs Psychiatric: normal affect, A&O x 3 Dx/Plan (1) CAD (coronary artery disease) Code(s): I25.10 - ATHSCL HEART DISEASE OF [place] CORONARY ARTERY W/O ANG PCTRS Status: Chronic (2) HTN (hypertension) Code(s): I10 - ESSENTIAL (PRIMARY) HYPERTENSION Status: Chronic Comment: stable. Add prn antihypertensives (3) S/P total knee arthroplasty Code(s): Z96.659 - PRESENCE OF UNSPECIFIED ARTIFICIAL KNEE JOINT Status: Acute Qualifiers: Laterality: right Qualified Code(s): Z96.651 - Presence of right artificial knee joint (4) HLD (hyperlipidemia) Code(s): E78.5 - HYPERLIPIDEMIA, UNSPECIFIED Status: Chronic Comment: cont Crestor. Stable - Plan PT/OT, out of bed/ambulate, DVT proph w/lovenox, DVT proph w/SCDs cont home meds. ASA on hold d/t Sx today -: AM labs -: HD stable -: IM team will follow -: Pt on trulicity & Metfromin for Wt loss .not a diabetic * . Review of Systems - Review of Systems Constitutional: negative: fever, chills, sweats, weakness, malaise, other ENT: negative: Ear Pain, Ear Discharge, Nose Pain, Nose Discharge, Nose Congestion, Mouth Pain, Mouth Swelling, Throat Pain, Throat Swelling, Other Respiratory: negative: Cough, Dry, Shortness of Breath, Hemoptysis, SOB with Excertion, Pleuritic Pain, Sputum, Wheezing Cardiovascular: negative: chest pain, palpitations, orthopnea, paroxysmal nocturnal dyspnea, edema, light headedness, other Gastrointestinal: negative: Nausea, Vomiting, Abdominal Pain, Diarrhea, Constipation, Melena, Hematochezia, Other Genitourinary: negative: Dysuria, Frequency, Incontinence, Hematuria, Retention , Other Musculoskeletal: negative: Neck Pain, Shoulder Pain, Arm Pain, Back Pain, Hand Pain, Leg Pain, Foot Pain, Other Skin: negative: Rash, Lesions, Greg, Bruising, Other Neurological: negative: Weakness, Numbness, Incoordination, Change in Speech, Confusion, Seizures, Other - Medications/Allergies Allergies/Adverse Reactions: Allergies Allergy/AdvReac Type Severity Reaction Status Date / Time No Known Drug Allergies Allergy Verified 04/01/18 14:44 Medications: Current Medications Acetaminophen (Tylenol) 650 mg PO Q4H PRN PRN Reason: Headache/Fever or Pain Hydrocodone Bitart/Acetaminophen ([place] 10/325) 1 tab PO Q4H PRN PRN Reason: Moderate Pain (4-6) Diphenhydramine HCl (Benadryl) 25 mg PO Q6H PRN PRN Reason: Itching Enoxaparin Sodium (Lovenox) 40 mg SC 0900 [facility] Ferrous Gluconate (Fergon) 324 mg PO BID [facility] Cefazolin Sodium/Dextrose 2 gm (/ Device) 50 mls @ 100 mls/hr IVPB 0400,1200, 2000 [facility] Stop: 05/06/19 04:29 Iron/Minerals/Multivitamins (Theragran M) 1 tab PO DAILY [facility] Ketorolac Tromethamine (Toradol) 30 mg IVP Q8HR [facility] Stop: 05/07/19 22:01 Levothyroxine Sodium (Synthroid) 50 mcg PO DAILY [facility] Morphine Sulfate (Morphine) 4 mg SLOW IVP Q2H PRN PRN Reason: Severe Pain (7-10) Non-Formulary Medication (Dulaglutide [Trulicity]) 1 ampule SC ASDIR [facility] Ondansetron HCl (Zofran) 4 mg IVP Q6H PRN PRN Reason: Nausea/Vomiting Rosuvastatin Calcium (Crestor) 20 mg PO HS [facility] Senna/Docusate Sodium (Senokot S) 2 tab PO BID [facility] Sodium Chloride (Flush - Normal Saline) 10 ml IVF PRN PRN PRN Reason: Saline Flush Tamsulosin HCl (Flomax) 0.4 mg PO DAILY [facility] Tramadol HCl (Ultram) 100 mg PO Q6H PRN PRN Reason: Moderate Pain (4-6)
[2019-05-05] MEDS: CEFAZOLIN 2 GM in Premix Bag 1 BAG IVPB SCH (21:00)
[2019-05-05] MEDS: Ferrous Gluconate 324 MG TAB PO SCH (21:22)
[2019-05-05] MEDS: Rosuvastatin 20 MG TAB PO SCH (21:23)
[2019-05-05] MEDS: Senokot S 8.6-50 MG TAB PO SCH (21:23)
[2019-05-05] MEDS: Ketorolac Tromethamine 30 MG/ML VIAL IVP SCH (21:24)
--- NOTE | 2019-05-06 00:04 | OP ---
DATE OF PROCEDURE: 05/05/2019 PREOPERATIVE DIAGNOSIS: Right knee primary osteoarthritis. POSTOPERATIVE DIAGNOSIS: Right knee primary osteoarthritis. PROCEDURE PERFORMED: Right total knee arthroplasty. ANESTHESIA: General with right lower extremity regional block. ESTIMATED BLOOD LOSS: 150 mL. TOURNIQUET TIME: 137 minutes at 250 mmHg. DRAINS: None. SPECIMENS: None. COMPLICATIONS: None. OPERATIVE INDICATIONS: The patient is a pleasant 68-year-old male who is known to have a dense tricompartmental osteoarthritis of his right knee. The patient had extensively trialed conservative management, but continued to have debilitating pain with daily activities and decreased ability to perform ADLs. Risk and benefits of surgical intervention as well as non-surgical management were reviewed in detail and patient elected to proceed. We did get clearance by his oracle fusion middleware developer and PCP prior to proceeding with scheduling. ORTHOPEDIC IMPLANTS: 1. DonJoy posterior stabilized femur, size #10. 2. Tibial baseplate, size #9. 3. Vitamin E plus posterior stabilized polyethylene insert size 9 x 11 mm. 4. A 38 mm x 9 mm dome patella. DESCRIPTION OF PROCEDURE: The patient's right lower extremity was marked in the preoperative holding area, and a regional block was performed by the Anesthesia Team. He was transported to the operative suite in a supine position, where general anesthesia was induced. He received a preoperative dose of IV antibiotics as well as 1 g of IV TXA prior to incision. In the upper leg, tourniquet was applied and rivera bags were utilized for positioning. Right lower extremity was then prepped and draped in usual sterile fashion for this type of procedure. A surgical timeout was performed, correctly identified the patient, procedure and laterality, and all members of the team were in agreement. After application of Esmarch dressing, the tourniquet was then insufflated. A longitudinal incision was made from 3 cm proximal of patella down to tibial tubercle. Full-thickness skin flaps were then developed in the medial and lateral directions. We then outlined and performed a medial parapatellar arthrotomy leaving the cuff of tissue on the patella for a layer of repair. With the knee in extension, we then excised the suprapatellar fat pad as well as the infrapatellar fat pad. We then performed a gentle medial release with use of Bovie cautery and a curved elevator. Next, with the knee in flexion, we marked out John's line and used our intramedullary femoral drill approximately 1 cm above PCL. Our distal femoral intramedullary guide was then inserted and placed on the distal aspect of the femur. This was then pinned into position and a distal 10 mm cut was taken off the distal femur. This jig was then removed and a distal femoral sizing guide was then placed into position. We placed this in 3 degrees of external rotation noting that this aligned with the epicondylar access and was perpendicular to Llano's lines. We then sized it to a #10 femur. We then performed an anterior, posterior and chamfer cuts of the distal femur. All bony cuts were then removed. We then translated the tibia anteriorly and placed our tibia extramedullary drill guide into position. We placed this on the medial 1/3 of the tibial tubercle ensuring that alignment was parallel and completely in line with his mechanical access. We used our depth gauge to cut 10 mm of the high lateral thigh. We then ensured approximately 3 degrees of posterior slope by matching the jig to the anterior tibia and using a 3 degree cut guide. This was then pinned into position. Tibial resection was then performed leaving the pins in place. We then brought the knee into extension and noted that the spacer block was quite tight in extension and flexion. We then replaced the tibial guide and cut an extra 2 mm off the tibia. Pins were then removed and spacer block ensured adequate resection in both extension and flexion. During the implantation of our trial components, the patient was noted to have significant contraction and tightness medially. A further medial release was then performed as well as gentle pie-crusting of the MCL. This gave us an improved balance between our medial and lateral ligaments. We were then able to trial with the femur, tibia and a size 10 mm polyethylene. At this point, with the knee in extension and trials in place, we then everted the patella and removed all osteophytes with rongeur. We used our patella cut guide resecting proximally 11 mm as the patella measured about 26 total millimeters in thickness. This cut was then performed and we sized the patella to a 38 and lug holes were then placed. Trial patella was then positioned. We then put the knee to a range of motion and had perfect patella tracking throughout range of motion. At this point, all implants were then improved from the knee and wound was thoroughly irrigated. We then attached our block cutting guide on the distal femur for the posterior stabilized knee. The notch cut was then performed. With the knee in full extension, we ensured complete removal of both the medial and lateral menisci as well as all posterior osteophytes. We did resect the posterior lip of the condyles with a curved osteotome with the knee in flexion. The wounds were then thoroughly irrigated and 0.25% Marcaine with epinephrine were then injected throughout the periosteum of the femur and tibia as well as posterior capsule. Once adequate cleaning was performed, we then cemented the tibia, femur and patella into position in standard fashion. All extraneous cement was then removed. At this point, the tourniquet was also removed and we soaked the wound for 3 minutes with dilute Betadine solution. Once the cement had hardened, we then trialed with an 11 mm polyethylene noting approximately 1 mm gap medially and 2 mm gap laterally in about 30 degrees of flexion and symmetric opening in 90 degrees of flexion. The trial poly was removed and final above-stated polyethylene insert was then inserted. Again all extra cement was then removed. Wound was thoroughly irrigated and rinsed with Betadine solution again. The arthrotomy was then closed with interrupted #1 Vicryl sutures followed by a PDS Stratafix running in the proximal and distal directions. The skin was then closed meticulously in layered fashion with 2-0 Vicryl, 3-0 Monocryl and sterile skin glue. 4x4's, ABD pads and Joe wrap were then applied. General anesthesia was removed and he was transported to recovery in good condition. The patient tolerated the procedure well without complication. Job ID: [id number]
[2019-05-06] MEDS: Morphine 4 MG/ML VIAL SLOW IVP PRN ×4 (00:23→19:47)
[2019-05-06] MEDS: CEFAZOLIN 2 GM in Premix Bag 1 BAG IVPB SCH (03:40)
[2019-05-06 04:55] LABS: Hemoglobin 13.7 g/dL (14.0-18.0); Mean Corpuscular Hemoglobin 32.1 pg (27.0-31.0); Platelet Count 197 thou/uL (130-400); RBC Distribution Width 12.5 % (11.5-14.5); Red Blood Cell (RBC) Count 4.27 mill/uL (4.70-6.10); White Blood Cell (WBC) Count 20.4 thou/uL (4.8-10.8)
[2019-05-06 05:09] LABS: Anion Gap 11 mmol/L (10-20); BUN (Urea Nitrogen) 16 mg/dL (8.4-25.7); Calc. Creatinine Clearance 108 mL/min (70-130); Calcium 8.6 mg/dL (7.8-10.44); Carbon Dioxide 25 mmol/L (23-31); Chloride 101 mmol/L (98-107); Estimated GFR-MDRD 60; Glucose 138 mg/dL (80-115); Potassium 4.8 mmol/L (3.5-5.1); Sodium 132 mmol/L (136-145)
[2019-05-06] MEDS: Ketorolac Tromethamine 30 MG/ML VIAL IVP SCH ×3 (05:31→22:28)
[2019-05-06] MEDS: Enoxaparin Sodium 40 MG/0.4 ML SYRINGE SC SCH (08:57)
[2019-05-06] MEDS: Senokot S 8.6-50 MG TAB PO SCH ×2 (08:58→20:02)
[2019-05-06] MEDS: Multivitamin W/ Minerals 1 TAB PO SCH (08:58)
[2019-05-06] MEDS: Tamsulosin HCl 0.4 MG CAP PO SCH (08:58)
[2019-05-06] MEDS: Levothyroxine Sodium 50 MCG TAB PO SCH (08:59)
[2019-05-06] MEDS: Ferrous Gluconate 324 MG TAB PO SCH ×2 (08:59→20:09)
[2019-05-06] MEDS ORDERED: Prevnar 13-Val Conj/PF 0.5 ML SYRINGE IM ONE (09:00)
--- NOTE | 2019-05-06 10:28 | PRG ---
DATE OF SERVICE: 05/06/2019 SUBJECTIVE: The patient is doing well postop day 1 from right total knee arthroplasty. Tolerating diet. He has not mobilized yet. He is working on CPM in bed. Reports continued pain in the anterior and posterior aspects of his right knee despite hydrocodone treatment. OBJECTIVE: VITAL SIGNS: The patient is afebrile. Vital signs were reviewed and stable. GENERAL: The patient is alert and oriented, in no acute distress. EXTREMITIES: CPM in place. His postop dressings to right knee have been changed. Incision is clean and dry without drainage. Moderate swelling about the knee. He has passive and active motion from 0 degree extension to 75 degrees of flexion. Stable to varus and valgus stress throughout motion. Intact motor and sensory function throughout L3 to S1 distribution in the right lower extremity. No pain in right calf with negative Arron sign. HEART: The patient has regular heart rate. RESPIRATORY: Nonlabored breathing. ABDOMEN: Soft and nontender. LABORATORY DATA: Hemoglobin is stable at 13.7. ASSESSMENT: Right total knee arthroplasty, postoperative day 1. PLAN: 1. Continue admission for physical therapy, pain control, and discharge planning. 2. Continue physical therapy for mobilization per total joint protocol. 3. 24 hours of IV antibiotics for surgical prophylaxis. 4. Continue daily Lovenox for chemical DVT prophylaxis in association with Simona López, early mobilization for mechanical DVT prophylaxis. 5. Appreciate assistance from hospitalist team for medical management. 6. We will change pain medication to oxycodone 10 to 20 mg every 4 hours as the hydrocodone did not seem to effective. 7. Depending on progress with therapy and pain control today, consider discharge home either later today versus tomorrow. Job ID: [id number]
[2019-05-06] MEDS: oxyCODONE 5 MG TAB PO PRN ×3 (10:49→23:41)
--- NOTE | 2019-05-06 16:11 | PDOC.PN ---
- Subjective Encounter Start Date: 05/06/19 Encounter Start Time: 16:09 Subjective: feels well but knee pain poorly controlled -: no CP/SOB/fever/chills - Objective MAR Reviewed: Yes Vital Signs & Weight: Vital Signs (12 hours) Temp Pulse Resp BP BP BP Pulse Ox 05/06/19 14:57 97.7 F 90 18 117/70 92 L 05/06/19 08:40 95 05/06/19 07:00 98 F 73 18 126/78 05/06/19 04:17 97.6 F 79 20 115/68 98 Weight Weight 285 lb I&O: 05/05/19 05/06/19 05/07/19 06:59 06:59 06:59 Intake Total 1074 Output Total 1100 Balance -26 Result Diagrams: 05/06/19 04:32 05/06/19 04:32 Additional Labs: Laboratory Tests 05/01/19 05/06/19 14:45 04:32 WBC 10.8 20.4 H Hgb 16.4 13.7 L Phys Exam - Physical Examination Constitutional: NAD working via [employer] (formerly Nitro[employer]) for knee HEENT: PERRLA, moist MMs, sclera anicteric, TM's clear, oral pharynx no lesions , 2+ tonsils Neck: no nodes, no JVD, supple, full ROM Respiratory: no wheezing, no rales, no rhonchi, clear to auscultation bilateral Cardiovascular: RRR, no significant murmur Gastrointestinal: soft, non-tender, no distention, positive bowel sounds Musculoskeletal: no edema, pulses present Neurological: non-focal, normal sensation, moves all 4 limbs Psychiatric: normal affect, A&O x 3 Dx/Plan (1) Leucocytosis Code(s): D72.829 - ELEVATED WHITE BLOOD CELL COUNT, UNSPECIFIED Status: Acute Comment: olgaley reactive.monitor (2) CAD (coronary artery disease) Code(s): I25.10 - ATHSCL HEART DISEASE OF [place] CORONARY ARTERY W/O ANG PCTRS Status: Chronic (3) HTN (hypertension) Code(s): I10 - ESSENTIAL (PRIMARY) HYPERTENSION Status: Chronic Comment: stable. Add prn antihypertensives (4) S/P total knee arthroplasty Code(s): Z96.659 - PRESENCE OF UNSPECIFIED ARTIFICIAL KNEE JOINT Status: Acute Qualifiers: Laterality: right Qualified Code(s): Z96.651 - Presence of right artificial knee joint (5) HLD (hyperlipidemia) Code(s): E78.5 - HYPERLIPIDEMIA, UNSPECIFIED Status: Chronic Comment: cont Crestor. Stable - Plan continue antibiotics, PT/OT, incentive spirometry, out of bed/ambulate, DVT proph w/lovenox, DVT proph w/SCDs H/h slithly lower as expected post-op.monitor. -: BP stable.cont monitoring -: cont home meds. -: HD stable. -: feso4 for pos-op anemia.am labs.IM team will follow * . Review of Systems - Review of Systems Constitutional: negative: fever, chills, sweats, weakness, malaise, other Respiratory: negative: Cough, Dry, Shortness of Breath, Hemoptysis, SOB with Excertion, Pleuritic Pain, Sputum, Wheezing Cardiovascular: negative: chest pain, palpitations, orthopnea, paroxysmal nocturnal dyspnea, edema, light headedness, other Gastrointestinal: negative: Nausea, Vomiting, Abdominal Pain, Diarrhea, Constipation, Melena, Hematochezia, Other Genitourinary: negative: Dysuria, Frequency, Incontinence, Hematuria, Retention , Other Musculoskeletal: Other Neurological: negative: Weakness, Numbness, Incoordination, Change in Speech, Confusion, Seizures, Other - Medications/Allergies Allergies/Adverse Reactions: Allergies Allergy/AdvReac Type Severity Reaction Status Date / Time No Known Drug Allergies Allergy Verified 05/06/19 00:52 Medications: Current Medications Acetaminophen (Tylenol) 650 mg PO Q4H PRN PRN Reason: Headache/Fever or Pain Diphenhydramine HCl (Benadryl) 25 mg PO Q6H PRN PRN Reason: Itching Enoxaparin Sodium (Lovenox) 40 mg SC 0900 [facility] Last Admin: 05/06/19 08:57 Dose: 40 mg Ferrous Gluconate (Fergon) 324 mg PO BID [facility] Last Admin: 05/06/19 08:59 Dose: 324 mg Iron/Minerals/Multivitamins (Theragran M) 1 tab PO DAILY [facility] Last Admin: 05/06/19 08:58 Dose: 1 tab Ketorolac Tromethamine (Toradol) 30 mg IVP Q8HR [facility] Stop: 05/07/19 22:01 Last Admin: 05/06/19 13:32 Dose: 30 mg Levothyroxine Sodium (Synthroid) 50 mcg PO DAILY [facility] Last Admin: 05/06/19 08:59 Dose: 50 mcg Morphine Sulfate (Morphine) 4 mg SLOW IVP Q2H PRN PRN Reason: Severe Pain (7-10) Last Admin: 05/06/19 08:59 Dose: 4 mg Non-Formulary Medication (Dulaglutide [Trulicity]) 1 ampule SC ASDIR [facility] Ondansetron HCl (Zofran) 4 mg IVP Q6H PRN PRN Reason: Nausea/Vomiting Oxycodone HCl (Oxycodone Ir) 20 mg PO Q4H PRN PRN Reason: Moderate to Severe Pain (6-10) Oxycodone HCl (Oxycodone Ir) 10 mg PO Q4H PRN PRN Reason: Mild-Moderate Pain (1-5) Last Admin: 05/06/19 10:49 Dose: 10 mg Rosuvastatin Calcium (Crestor) 20 mg PO [facility] Last Admin: 05/05/19 21:23 Dose: 20 mg Senna/Docusate Sodium (Senokot S) 2 tab PO BID [facility] Last Admin: 05/06/19 08:58 Dose: 2 tab Sodium Chloride (Flush - Normal Saline) 10 ml IVF PRN PRN PRN Reason: Saline Flush Last Admin: 05/06/19 05:32 Dose: 10 ml Tamsulosin HCl (Flomax) 0.4 mg PO DAILY [facility] Last Admin: 05/06/19 08:58 Dose: 0.4 mg Tramadol HCl (Ultram) 100 mg PO Q6H PRN PRN Reason: Moderate Pain (4-6)
[2019-05-06] MEDS: Rosuvastatin 20 MG TAB PO SCH (20:03)
[2019-05-07] MEDS: Ketorolac Tromethamine 30 MG/ML VIAL IVP SCH ×2 (05:32→13:20)
[2019-05-07 06:11] LABS: Hemoglobin 13.5 g/dL (14.0-18.0); Mean Corpuscular HGB CONC 32.3 g/dL (32.0-36.0); Mean Corpuscular Hemoglobin 32.2 pg (27.0-31.0); Mean Corpuscular Volume 99.6 fL (78.0-98.0); Mean Platelet Volume 8.5 fL (7.4-10.4); Platelet Count 183 thou/uL (130-400); RBC Distribution Width 12.5 % (11.5-14.5); White Blood Cell (WBC) Count 11.9 thou/uL (4.8-10.8)
[2019-05-07] MEDS: oxyCODONE 5 MG TAB PO PRN ×2 (08:55→13:28)
[2019-05-07] MEDS: Ferrous Gluconate 324 MG TAB PO SCH (08:56)
[2019-05-07] MEDS: Senokot S 8.6-50 MG TAB PO SCH (08:56)
[2019-05-07] MEDS: Levothyroxine Sodium 50 MCG TAB PO SCH (08:57)
[2019-05-07] MEDS: Enoxaparin Sodium 40 MG/0.4 ML SYRINGE SC SCH (08:57)
[2019-05-07] MEDS: Multivitamin W/ Minerals 1 TAB PO SCH (08:57)
[2019-05-07] MEDS: Tamsulosin HCl 0.4 MG CAP PO SCH (08:57)
--- NOTE | 2019-05-07 11:28 | DIS ---
DATE OF ADMISSION: 05/05/2019 DATE OF DISCHARGE: 05/07/2019 ADMISSION DIAGNOSIS: Right knee osteoarthritis. POSTOPERATIVE DIAGNOSIS: Right knee osteoarthritis. PROCEDURE: Right total knee arthroplasty on May 05, 2019. CONSULTATION: Hospitalist, Internal Medicine. BRIEF HOSPITAL COURSE: The patient was admitted to the [facility] surgical floor following right total knee arthroplasty. Laboratory markers were followed and pain management was titrated to the patient's knees. He was initiated in physical therapy per total knee arthroplasty protocol and progressed appropriately. We utilized 24 hours of prophylactic IV antibiotics. We also utilized Lovenox per chemical DVT prophylaxis as well as SCDs, ELO hose, and early mobilization for mechanical DVT prophylaxis. On postop day 2, the patient had adequate pain control on oral medications and was mobilizing safely. Discharge followup and physical therapy had been arranged, and the patient was stable for discharge. He was tolerating regular diet. DISCHARGE MEDICATIONS: The patient will be discharged with oxycodone 5 mg, 1 to 4 tablets p.o. every 4 hours as needed for pain, #60. He was also discharged with Zofran. We will utilize Eliquis 2.5 mg p.o. twice daily for 10 days followed by resumption of normal 325 mg aspirin daily for 6 weeks. FOLLOWUP: The patient has followup in orthopedic clinic on May 12 with Physical Therapy initiating on outpatient basis on same day. DIET: Heart healthy. ACTIVITY: Weightbearing as tolerated, range of motion as tolerated. DISCHARGE PHYSICAL EXAM: The patient was alert and oriented in no acute distress. He had regular heart rate and nonlabored breathing. ABDOMEN: Soft and nontender. He had moderate swelling about right knee and incision was clean and dry. Clean Aquacel dressing was placed today. Active motion from 0 to 100 degrees. Stable to varus and valgus stress throughout motion. Motor and sensory function intact throughout L3 to S1 distribution in the right lower extremity. No pain in calf with negative Antionette's sign. DISCHARGE DISPOSITION: Good. Job ID: [id number]
--- NOTE | 2019-05-07 14:31 | PDOC.PN ---
- Subjective Encounter Start Date: 05/07/19 Encounter Start Time: 14:30 Subjective: no new complaints. being Dced home by primary team - Objective MAR Reviewed: Yes Vital Signs & Weight: Vital Signs (12 hours) Temp Pulse Resp BP BP BP Pulse Ox 05/07/19 12:00 98.7 F 89 16 118/70 94 L 05/07/19 08:40 92 L 05/07/19 08:00 98.6 F 91 18 115/79 92 L 05/07/19 04:33 97.9 F 84 18 118/72 95 Weight Weight 285 lb I&O: 05/06/19 05/07/19 05/08/19 06:59 06:59 06:59 Intake Total 1074 2232 Output Total 1100 1675 Balance -26 557 Result Diagrams: 05/07/19 05:19 05/06/19 04:32 Additional Labs: Laboratory Tests 05/06/19 05/07/19 04:32 05:19 WBC 20.4 H 11.9 H Phys Exam - Physical Examination Constitutional: NAD Respiratory: no wheezing, no rales, no rhonchi Cardiovascular: RRR, no significant murmur Musculoskeletal: no edema, pulses present Neurological: non-focal, normal sensation, moves all 4 limbs Dx/Plan (1) Leucocytosis Code(s): D72.829 - ELEVATED WHITE BLOOD CELL COUNT, UNSPECIFIED Status: Acute Comment: olgaley reactive.monitor improved (2) CAD (coronary artery disease) Code(s): I25.10 - ATHSCL HEART DISEASE OF [place] CORONARY ARTERY W/O ANG PCTRS Status: Chronic Comment: cont home meds (3) HTN (hypertension) Code(s): I10 - ESSENTIAL (PRIMARY) HYPERTENSION Status: Chronic Comment: stable. Add prn antihypertensives (4) S/P total knee arthroplasty Code(s): Z96.659 - PRESENCE OF UNSPECIFIED ARTIFICIAL KNEE JOINT Status: Acute Qualifiers: Laterality: right Qualified Code(s): Z96.651 - Presence of right artificial knee joint (5) HLD (hyperlipidemia) Code(s): E78.5 - HYPERLIPIDEMIA, UNSPECIFIED Status: Chronic Comment: cont Crestor. Stable - Plan DVT proph w/SCDs HD stable -: OK to DC home from IM stand point -: f/u w PCP * . Review of Systems - Review of Systems Constitutional: negative: fever, chills, sweats, weakness, malaise, other Respiratory: negative: Cough, Dry, Shortness of Breath, Hemoptysis, SOB with Excertion, Pleuritic Pain, Sputum, Wheezing Cardiovascular: negative: chest pain, palpitations, orthopnea, paroxysmal nocturnal dyspnea, edema, light headedness, other Gastrointestinal: negative: Nausea, Vomiting, Abdominal Pain, Diarrhea, Constipation, Melena, Hematochezia, Other Genitourinary: negative: Dysuria, Frequency, Incontinence, Hematuria, Retention , Other Neurological: negative: Weakness, Numbness, Incoordination, Change in Speech, Confusion, Seizures, Other - Medications/Allergies Allergies/Adverse Reactions: Allergies Allergy/AdvReac Type Severity Reaction Status Date / Time No Known Drug Allergies Allergy Verified 05/06/19 00:52 Medications: Current Medications Acetaminophen (Tylenol) 650 mg PO Q4H PRN PRN Reason: Headache/Fever or Pain Apixaban (Eliquis) 2.5 mg PO BID [facility] Stop: 05/18/19 09:01 Diphenhydramine HCl (Benadryl) 25 mg PO Q6H PRN PRN Reason: Itching Enoxaparin Sodium (Lovenox) 40 mg SC 0900 [facility] Last Admin: 05/07/19 08:57 Dose: 40 mg Ferrous Gluconate (Fergon) 324 mg PO BID [facility] Last Admin: 05/07/19 08:56 Dose: 324 mg Iron/Minerals/Multivitamins (Theragran M) 1 tab PO DAILY [facility] Last Admin: 05/07/19 08:57 Dose: 1 tab Ketorolac Tromethamine (Toradol) 30 mg IVP Q8HR [facility] Stop: 05/07/19 22:01 Last Admin: 05/07/19 13:20 Dose: 30 mg Levothyroxine Sodium (Synthroid) 50 mcg PO DAILY [facility] Last Admin: 05/07/19 08:57 Dose: 50 mcg Morphine Sulfate (Morphine) 4 mg SLOW IVP Q2H PRN PRN Reason: Severe Pain (7-10) Last Admin: 05/06/19 19:47 Dose: 4 mg Non-Formulary Medication (Dulaglutide [Trulicity]) 1 ampule SC ASDIR [facility] Ondansetron HCl (Zofran) 4 mg IVP Q6H PRN PRN Reason: Nausea/Vomiting Oxycodone HCl (Oxycodone Ir) 20 mg PO Q4H PRN PRN Reason: Moderate to Severe Pain (6-10) Last Admin: 05/07/19 08:55 Dose: 20 mg Oxycodone HCl (Oxycodone Ir) 10 mg PO Q4H PRN PRN Reason: Mild-Moderate Pain (1-5) Last Admin: 05/07/19 13:28 Dose: 10 mg Rosuvastatin Calcium (Crestor) 20 mg PO HS [facility] Last Admin: 05/06/19 20:03 Dose: 20 mg Senna/Docusate Sodium (Senokot S) 2 tab PO BID [facility] Last Admin: 05/07/19 08:56 Dose: 2 tab Sodium Chloride (Flush - Normal Saline) 10 ml IVF PRN PRN PRN Reason: Saline Flush Last Admin: 05/07/19 05:33 Dose: 10 ml Tamsulosin HCl (Flomax) 0.4 mg PO DAILY [facility] Last Admin: 05/07/19 08:57 Dose: 0.4 mg Tramadol HCl (Ultram) 100 mg PO Q6H PRN PRN Reason: Moderate Pain (4-6)
[2019-05-07 15:48] VITALS: BP 105/53; TEMP 98.4
[2019-05-08] MEDS ORDERED: Apixaban 2.5 MG TAB PO SCH (09:00)
== END 2019-05-07 15:49 | disposition home or self-care (01) | DRG 470 ==
LOC: SURG A 05-05 10:57 → EDSTATUS 05-05 13:15 → SJJU 05-05 18:21
PROVIDERS: ADMIT Orthopaedic Surgery; ATTEND Orthopaedic Surgery
PROC: 0SRC069 Replacement of Right Knee Joint with Oxidized Zirconium on Polyethylene Synthetic Substitute, Cemented, Open Approach (ICD-10-PCS; principal; 2019-05-05)
DX: M17.11 Unilateral primary osteoarthritis, right knee (principal); I25.10 Atherosclerotic heart disease of native coronary artery without angina pectoris; E78.00 Pure hypercholesterolemia, unspecified; E03.9 Hypothyroidism, unspecified; N40.0 Benign prostatic hyperplasia without lower urinary tract symptoms; I10 Essential (primary) hypertension; D72.829 Elevated white blood cell count, unspecified; Z79.899 Other long term (current) drug therapy; Z79.82 Long term (current) use of aspirin; Z87.891 Personal history of nicotine dependence; Z95.1 Presence of aortocoronary bypass graft; I25.2 Old myocardial infarction; Z85.72 Personal history of non-Hodgkin lymphomas
CPT/HCPCS: 36415; 80048; 85027; C1713; C1776; J0670; J0690; J1100; J1650; J1885; J2001; J2250; J2270; J2370; J2405; J2704; J2795; J3010; J3490

== ENCOUNTER 2019-07-02 14:31 | Outpatient (CLI) | payer BC, MEDICARE ==
--- NOTE | 2019-07-02 15:01 | RAD ---
Exam: Chest 2 views HISTORY: Atherosclerosis of [place] coronary arteries COMPARISON: 05/07/2018 FINDINGS: There are sternotomy wires. Normal cardiac silhouette. Lungs and pleural spaces are clear. No pneumothorax. No osseous abnormalities. Incidental coronary stent suggested. IMPRESSION: No acute cardiopulmonary process. Incidental coronary stent Transcribed Date/Time: 07/02/2019 4:00 PM
== END 2019-07-02 14:32 | disposition home or self-care (01) ==
LOC: RAD 14:31
PROVIDERS: ATTEND Thoracic Surgery (Cardiothoracic Vascular Surgery)
DX: I25.10 Atherosclerotic heart disease of native coronary artery without angina pectoris (principal); Z95.1 Presence of aortocoronary bypass graft
CPT/HCPCS: 71046

== ENCOUNTER 2022-09-28 09:37 | Emergency (ER) | payer MEDICARE, BC ==
[2022-09-28 10:29] LABS: Hemoglobin 16.7 g/dL (14.0-18.0); Mean Corpuscular HGB CONC 31.5 g/dL (32.0-36.0); Mean Corpuscular Hemoglobin 32.5 pg (27.0-31.0); Mean Platelet Volume 8.8 fL (7.4-10.4); Platelet Count 149 10x3/uL (130-400); RBC Distribution Width 12.5 % (11.5-14.5); Red Blood Cell (RBC) Count 5.13 mill/uL (4.70-6.10); White Blood Cell (WBC) Count 8.1 10x3/uL (4.8-10.8)
[2022-09-28 10:57] LABS: ALT (SGPT) 21 U/L (8-55); AST (SGOT) 27 U/L (5-34); Albumin 4.1 g/dL (3.4-4.8); Alkaline Phosphatase 74 U/L (40-110); Anion Gap 13 mmol/L (10-20); BUN (Urea Nitrogen) 18 mg/dL (8.4-25.7); Bilirubin, Total 0.5 mg/dL (0.2-1.2); Calc. Creatinine Clearance 0 mL/min (70-130); Calcium 9.1 mg/dL (7.8-10.44); Carbon Dioxide 24 mmol/L (23-31); Chloride 103 mmol/L (98-107); Estimated GFR 54; Globulin 3.5 g/dL (2.4-3.5); Glucose 107 mg/dL (80-115); Potassium 4.5 mmol/L (3.5-5.1); Protein, Total 7.6 g/dL (5.8-8.1); Sodium 135 mmol/L (136-145)
[2022-09-28 11:00] LABS: Band 5 % (5-11); Eosinophils 1 % (0-10); Lymphocytes 12 % (21-51); MDiff Complete? YES; Monocytes 17 % (0-10); Neutrophil 65 % (42-75); Platelet Morphology Comment Appears Adequate; RBC Morphology Normal
[2022-09-28] MEDS ORDERED: Albuterol Sulfate 2.5 mg/3 ml Neb ONE (11:34)
[2022-09-28] MEDS ORDERED: Albuterol Sulfate 2.5 mg/0.5 ml Neb ONE (11:39)
[2022-09-28] MEDS ORDERED: Ipratropium Bromide 2.5 ml Neb ONE (11:39)
[2022-09-28 12:01] LABS: Bacteria/HPF None Seen HPF (None Seen); Bilirubin Negative (Negative); Blood, Urine Negative (Negative); Clarity Clear (Clear); Glucose, Urine (Dipstick) Normal (Negative); Ketone, Urine Trace mg/dL (Negative); Leukocyte Negative Leu/uL (Negative); Nitrite Negative (Negative); Protein, Urine (Dipstick) 70 mg/dL (Neg-Trace); RBC/HPF 0-3 HPF (0-3); Specific Gravity, Urine 1.034 (1.002-1.036); Squamous Epithelial 0-3 HPF (0-3); Urobilinogen Normal mg/dL (Less than 2); WBC/HPF 0-3 HPF (0-3); pH, Urine 5.5 (5.0-9.0)
[2022-09-28] MEDS ORDERED: Acetaminophen 500 MG TAB ONE (12:26)
[2022-09-28] MEDS ORDERED: Dexamethasone 10 MG/ML VIAL ONE (12:26)
== END 2022-09-28 13:18 | disposition home or self-care (01) ==
LOC: ERS 09:37
DX: J10.1 Influenza due to other identified influenza virus with other respiratory manifestations (principal); J98.01 Acute bronchospasm; E11.9 Type 2 diabetes mellitus without complications; E03.9 Hypothyroidism, unspecified; Z87.891 Personal history of nicotine dependence
CPT/HCPCS: 36415; 71045; 80053; 81003; 81015; 83605; 83880; 84484; 85025; 87804; 93005; 94760; J1100; J7611; J7620

== ENCOUNTER 2025-07-29 08:44 | Inpatient (IN) | payer MEDICARE ==
[2025-07-29 09:36] LABS: Hematocrit 54.2 % (42.0-52.0); Hemoglobin 17.8 g/dL (14.0-18.0); Mean Corpuscular Hemoglobin 31.7 pg (27.0-31.0); Mean Corpuscular Volume 96.6 fL (78.0-98.0); Platelet Count 155 10x3/uL (130-400); Red Blood Cell (RBC) Count 5.61 mill/uL (4.70-6.10); White Blood Cell (WBC) Count 22.47 10x3/uL (4.8-10.8)
[2025-07-29 09:48] LABS: ALT (SGPT) 48 U/L (Less than 45); AST (SGOT) 44 U/L (11-34); Albumin 4.1 g/dL (3.1-4.5); Alkaline Phosphatase 91 U/L (40-110); Anion Gap 18 mmol/L (10-20); BUN (Urea Nitrogen) 22 mg/dL (8.4-25.7); Bilirubin, Total 1.0 mg/dL (0.3-1.2); Calc. Creatinine Clearance 0 mL/min (70-130); Calcium 9.3 mg/dL (7.8-10.44); Carbon Dioxide 24 mmol/L (23-31); Chloride 102 mmol/L (98-107); Globulin 3.4 g/dL (2.4-3.5); Glucose 111 mg/dL (83-110); Potassium 4.6 mmol/L (3.5-5.1); Sodium 139 mmol/L (136-145)
[2025-07-29 10:08] LABS: Anisocytosis SLIGHT = 6-15 cells HPF (0-5); Burr Cells SLIGHT = 2-5 cells HPF (0-1); Platelet Adequacy Comment Platelets Normal; Polychromasia SLIGHT = 2-3 cells HPF (0-2); Smudge Cells 1.0 %
[2025-07-29] MEDS ORDERED: Cefepime 2 GM VIAL ONE (10:33)
[2025-07-29] MEDS ORDERED: Melatonin 3 MG TAB PO PRN (10:47)
[2025-07-29] MEDS ORDERED: Ketorolac Tromethamine 30 MG (1 mL) VIAL IVP PRN (10:47)
[2025-07-29] MEDS ORDERED: Senokot S 8.6-50 MG TAB PO PRN (10:47)
[2025-07-29] MEDS ORDERED: VANCOMYCIN 2 GRAM/400 ML BAG ONE (11:01)
[2025-07-29 11:57] VITALS: BMI 35.1
[2025-07-29] MEDS: Acetaminophen 325 MG TAB PO PRN (12:07)
[2025-07-29] MEDS: Clindamycin/D5W 600 MG in Premix 1 BAG IVPB SCH (16:22)
[2025-07-29] MEDS: Famotidine 20 MG TAB PO SCH (20:20)
[2025-07-29] MEDS: Sacubitril 24MG/Valsartan 26 MG TAB PO SCH (20:21)
[2025-07-29] MEDS: Rosuvastatin 20 MG TAB PO SCH (20:21)
[2025-07-29] MEDS: Metoprolol Succinate XL 25 MG ER.TAB PO SCH (20:21)
[2025-07-29] MEDS ORDERED: Albuterol 200 PUFF INH INH PRN (21:00)
[2025-07-29] MEDS ORDERED: Vancomycin 1 GM in Sodium Chloride 0.9% 250 ML 300 ML IVPB SCH (21:00)
[2025-07-29] MEDS: Oxymetazoline HCl 0.05% (30 ML BOT) NS PRN (21:46)
[2025-07-30 06:08] LABS: #Basophils 0.09 10x3/uL (0.0-0.2); #Eosinophils 0.05 10x3/uL (0.0-0.7); #Monocytes 2.00 10x3/uL (0.11-0.59); #Neutrophils 18.11 10x3/uL (1.40-6.50); %Basophils 0.4 % (0.0-1.0); %Eosinophils 0.2 % (0.0-10.0); %Lymphocytes 5.8 % (21.0-51.0); %Monocytes 9.2 % (0.0-10.0); %Neutrophils 83.8 % (42.0-75.0); Hematocrit 46.6 % (42.0-52.0); Hemoglobin 15.3 g/dL (14.0-18.0); Mean Corpuscular Hemoglobin 32.1 pg (27.0-31.0); Mean Corpuscular Volume 97.7 fL (78.0-98.0); Platelet Count 142 10x3/uL (130-400); Red Blood Cell (RBC) Count 4.77 mill/uL (4.70-6.10); White Blood Cell (WBC) Count 21.63 10x3/uL (4.8-10.8)
[2025-07-30 06:33] LABS: Anion Gap 15 mmol/L (10-20); BUN (Urea Nitrogen) 18 mg/dL (8.4-25.7); Calc. Creatinine Clearance 113 mL/min (70-130); Calcium 8.4 mg/dL (7.8-10.44); Carbon Dioxide 22 mmol/L (23-31); Chloride 103 mmol/L (98-107); Glucose 100 mg/dL (83-110); Potassium 4.2 mmol/L (3.5-5.1); Sodium 136 mmol/L (136-145); Vancomycin, Trough Less than 1.4 ug/mL
[2025-07-30] MEDS: Ezetimibe 10 MG TAB PO SCH (07:55)
[2025-07-30] MEDS: Enoxaparin 40 MG (0.4 mL) SYRINGE SC SCH (07:55)
[2025-07-31 06:05] LABS: #Basophils 0.07 10x3/uL (0.0-0.2); #Eosinophils 0.15 10x3/uL (0.0-0.7); #Monocytes 2.10 10x3/uL (0.11-0.59); #Neutrophils 11.23 10x3/uL (1.40-6.50); %Basophils 0.5 % (0.0-1.0); %Eosinophils 1.0 % (0.0-10.0); %Lymphocytes 9.5 % (21.0-51.0); %Monocytes 14.0 % (0.0-10.0); %Neutrophils 74.7 % (42.0-75.0); Hematocrit 47.1 % (42.0-52.0); Hemoglobin 15.2 g/dL (14.0-18.0); Mean Corpuscular Hemoglobin 31.7 pg (27.0-31.0); Mean Corpuscular Volume 98.1 fL (78.0-98.0); Platelet Count 134 10x3/uL (130-400); Red Blood Cell (RBC) Count 4.80 mill/uL (4.70-6.10); White Blood Cell (WBC) Count 15.03 10x3/uL (4.8-10.8)
[2025-07-31 06:14] LABS: ALT (SGPT) 33 U/L (Less than 45); AST (SGOT) 33 U/L (11-34); Albumin 2.9 g/dL (3.1-4.5); Alkaline Phosphatase 62 U/L (40-110); Anion Gap 12 mmol/L (10-20); BUN (Urea Nitrogen) 16 mg/dL (8.4-25.7); Bilirubin, Total 0.4 mg/dL (0.3-1.2); Calc. Creatinine Clearance 111 mL/min (70-130); Calcium 8.5 mg/dL (7.8-10.44); Carbon Dioxide 22 mmol/L (23-31); Chloride 107 mmol/L (98-107); Globulin 2.9 g/dL (2.4-3.5); Glucose 102 mg/dL (83-110); Potassium 4.3 mmol/L (3.5-5.1); Sodium 137 mmol/L (136-145)
[2025-08-01 05:36] LABS: #Basophils 0.08 10x3/uL (0.0-0.2); #Eosinophils 0.20 10x3/uL (0.0-0.7); #Monocytes 1.68 10x3/uL (0.11-0.59); #Neutrophils 7.88 10x3/uL (1.40-6.50); %Basophils 0.7 % (0.0-1.0); %Eosinophils 1.7 % (0.0-10.0); %Lymphocytes 15.6 % (21.0-51.0); %Monocytes 14.3 % (0.0-10.0); %Neutrophils 67.3 % (42.0-75.0); Hematocrit 49.2 % (42.0-52.0); Hemoglobin 16.1 g/dL (14.0-18.0); Mean Corpuscular Hemoglobin 31.4 pg (27.0-31.0); Mean Corpuscular Volume 96.1 fL (78.0-98.0); Platelet Count 142 10x3/uL (130-400); Red Blood Cell (RBC) Count 5.12 mill/uL (4.70-6.10); White Blood Cell (WBC) Count 11.72 10x3/uL (4.8-10.8)
[2025-08-01 06:04] LABS: Anion Gap 11 mmol/L (10-20); BUN (Urea Nitrogen) 17 mg/dL (8.4-25.7); Calc. Creatinine Clearance 112 mL/min (70-130); Calcium 8.9 mg/dL (7.8-10.44); Carbon Dioxide 25 mmol/L (23-31); Chloride 105 mmol/L (98-107); Glucose 103 mg/dL (83-110); Potassium 4.3 mmol/L (3.5-5.1); Sodium 137 mmol/L (136-145)
[2025-08-02 05:44] LABS: #Basophils 0.09 10x3/uL (0.0-0.2); #Eosinophils 0.22 10x3/uL (0.0-0.7); #Monocytes 1.20 10x3/uL (0.11-0.59); #Neutrophils 5.80 10x3/uL (1.40-6.50); %Basophils 1.0 % (0.0-1.0); %Eosinophils 2.5 % (0.0-10.0); %Lymphocytes 16.2 % (21.0-51.0); %Monocytes 13.7 % (0.0-10.0); %Neutrophils 66.1 % (42.0-75.0); Hematocrit 50.2 % (42.0-52.0); Hemoglobin 16.7 g/dL (14.0-18.0); Mean Corpuscular Hemoglobin 31.8 pg (27.0-31.0); Mean Corpuscular Volume 95.6 fL (78.0-98.0); Platelet Count 168 10x3/uL (130-400); Red Blood Cell (RBC) Count 5.25 mill/uL (4.70-6.10); White Blood Cell (WBC) Count 8.77 10x3/uL (4.8-10.8)
[2025-08-02 08:01] VITALS: BP 102/58; TEMP 97.6
== END 2025-08-02 14:29 | disposition home or self-care (01) | DRG 603 ==
LOC: ERS 08:44 → T4-A 10:46 → OBSVTOIN 07-30 13:04
PROVIDERS: ADMIT Internal Medicine; ATTEND Student in an Organized Health Care Education/Training Program
DX: L03.114 Cellulitis of left upper limb (principal); N17.9 Acute kidney failure, unspecified; I25.10 Atherosclerotic heart disease of native coronary artery without angina pectoris; Z98.890 Other specified postprocedural states; E03.9 Hypothyroidism, unspecified; Z86.718 Personal history of other venous thrombosis and embolism; Z90.81 Acquired absence of spleen; Z88.1 Allergy status to other antibiotic agents; E78.5 Hyperlipidemia, unspecified; Z95.1 Presence of aortocoronary bypass graft; Z86.711 Personal history of pulmonary embolism; E66.9 Obesity, unspecified; Z68.35 Body mass index [BMI] 35.0-35.9, adult; I10 Essential (primary) hypertension; Z79.899 Other long term (current) drug therapy; Z79.890 Hormone replacement therapy
CPT/HCPCS: 36415; 80048; 80053; 80202; 83605; 85025; 86141; 87040; 87077; 87081; 87149; 96372; 96374; 96375; 96376; G0378; J0692; J1650; J3375; J3490; J7030